=== PATIENT | male | born 2000 | race Caucasian/White ===

== ENCOUNTER 2020-12-08 10:09 | Emergency (ER) | payer OTHER, SELFPAY ==
--- NOTE | ~2020-12-08 | XR_ITS ---
EXAMINATION: XR chest 2V DATE: 12/08/2020 12:56 INDICATION: Syncope. Vomiting. TECHNIQUE: Frontal and lateral views of the chest were obtained. COMPARISON: Chest 2 views 03/05/2011 FINDINGS: There is no pneumonia, pleural effusion, or pneumothorax. The heart size is normal. IMPRESSION: 1. No acute cardiopulmonary disease. Reviewed, dictated and finalized at location B.
--- NOTE | ~2020-12-08 | CT_ITS ---
EXAMINATION: CT brain wo con INDICATION: Head injury COMPARISON: None TECHNIQUE: Standard unenhanced head CT. The dose-length product (DLP) was 605.33 mGy-cm. The mA was a djusted according to patient size. Iterative reconstruction technique was employed. FINDINGS: There is no intracranial hemorrhage, acute infarction, or abnormal mass lesion. The ventric les are normal. There is no abnormal mass effect or midline shift. The gold-white matter differentiat ion is normal. The basal cisterns are patent. The orbits are normal. There is mild mucosal thickening of the paranasal sinuses. IMPRESSION: 1. No acute intracranial abnormality. Reviewed, dictated and finalized at location A.
[2020-12-08 10:27] VITALS: BP 119/81; PULSE 82; RESP 18; TEMP 36.4; O2SAT 99
[2020-12-08 10:50] LABS: Basophils Percent Auto 0.5 % (0.2-1.2); Eosinophils Absolute Auto 0.1 K/mm3 (0-0.3); Hematocrit 45.4 % (42.0-52.0); Hemoglobin 15.5 g/dL (14.0-18.0); Immature Granulocyte Absolute 0.03 K/mm3 (0.00-0.031); Immature Granulocyte Percent A 0.5 % (0-0.5); Lymphocytes Absolute Auto 1.51 K/mm3 (0.9-3.2); Lymphocytes Percent Auto 25.1 % (18.3-44.2); Mean Corpuscular HGB Conc 34.1 g/dl (32-36); Mean Corpuscular Hemoglobin 31.1 pg (26-34); Mean Corpuscular Volume 91.2 fl (80-100); Monocytes Absolute Auto 0.4 K/mm3 (0.1-0.6); Monocytes Percent Auto 6.7 % (2.6-8.5); Neutrophils Absolute Auto 3.9 K/mm3 (1.3-6.7); Neutrophils Percent Auto 65.2 % (45.5-73.1); Platelet Count Result 179 k/mm3 (150-375); Red Blood Count 4.98 M/mm3 (4.6-6.20); Red Cell Distribution Width 12.1 % (11.5-14.5)
[2020-12-08 11:16] LABS: Alanine Aminotransferase 11 U/L (4-50); Albumin Level 4.7 g/dL (3.5-5.1); Alkaline Phosphatase 48 U/L (38-126); Anion Gap 10 mmol/L (8-16); Aspartate Amino Transferase 18 U/L (17-59); Bilirubin,Total 1.3 mg/dL (0.2-1.3); Blood Urea Nitrogen 9 mg/dL (9-20); Calcium 9.7 mg/dL (8.4-10.2); Carbon Dioxide 26 mmol/L (22-30); Chloride 107 mmol/L (98-107); Estimated CRCL calculation 117 ml/min; Estimated Glomerular Filt Rate > 60; Glucose 96 mg/dL (75-110); Lipase 27 U/L (23-300); Potassium 4.3 mmol/L (3.4-5.0); Sodium 143 mmol/L (137-145)
--- NOTE | 2020-12-08 11:28 | ED.NAVMDI ---
HPI - Nausea/Vomiting/Diarrhea General Chief complaint: Nausea/Vomiting/Diarrhea Stated complaint: n/v Source: patient Mode of arrival: ambulatory Limitations: no limitations History of Present Illness HPI Narrative: Patient is a 20-year-old male who presents for evaluation of a syncopal event as well as intractable vomiting. Patient states that on Sunday he was riding a lawnmower at work when he passed out. Patient fell off the mower, does not remember hitting his head. He denies any current headache, but reports he has had intractable nausea and vomiting since Sunday. Patient denies any current vision changes, neck pain, numbness or weakness. No chest pain or shortness of breath. Patient states he recently had a car trip to [place] over the weekend, where he had a few alcoholic beverages on Sunday but otherwise felt well on Sunday. Patient denies any current abdominal pain, diarrhea. No fever or chills. No leg swelling or calf pain. Related Data Allergies Allergy/AdvReac Type Severity Reaction Status Date / Time No Known Allergies Allergy Unverified 12/08/20 10:32 Review of Systems Review of Systems: Narrative: CONSTITUTIONAL: Denies fever, chills, or sweats. EYES: Denies visual changes, redness, or discharge. ENT: Denies rhinorrhea, congestion, sore throat, or otalgia. CARDIOVASCULAR: Denies chest pain, palpitations, or edema. RESPIRATORY: Denies cough or dyspnea. GASTROINTESTINAL: Denies abdominal pain, reports nausea and vomiting GENITOURINARY: Denies dysuria or hematuria. SKIN: Denies rash or itching. MUSCULOSKELETAL: Denies back pain, joint pain, or myalgia. NEUROLOGIC: Denies headache, numbness, or weakness. 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 EYES: PERRLA and EOMI. ENT: Nares clear, no rhinorrhea or epistaxis. Mucous membranes moist. NECK: Supple. CHEST: No respiratory distress, breathing even and non labored HEART: Regular rate, sinus rhythm ABDOMEN:Non distended, non tender EXTREMITIES: Normal range of motion. No edema. SKIN: Warm, dry, no rash. NEURO:No focal deficits. Alert and oriented x3. Finger to nose intact bilaterally. EOMs intact without nystagmus. No facial droop/asymmetry noted bilaterally. Grimace intact. Intact sensation in face. Hearing intact bilaterally. Shoulder shrug intact. Strength 5/5 bilateral upper extremities. Strength 5/5 bilateral lower extremities. Reflexes 2+ patellar. Heel to paris intact bilaterally. Ambulatory exam deferred. Course Vital Signs Vital signs: Vital Signs Temperature 36.4 C 12/08/20 10:27 Pulse Rate 82 12/08/20 10:27 Respiratory Rate 18 12/08/20 10:27 Blood Pressure 119/81 12/08/20 10:27 Pulse Oximetry 99 12/08/20 10:27 Temperature 36.4 C 12/08/20 10:27 Pulse Rate 82 12/08/20 10:27 Respiratory Rate 18 12/08/20 10:27 Blood Pressure 119/81 12/08/20 10:27 Pulse Oximetry 99 12/08/20 10:27 MDM - Nausea/Vomiting/Diarrhea MDM Narrative Medical decision making narrative: The patient was evaluated in the emergency department for syncopal event as well as nausea and vomiting that has persisted over 48 hours. The patient's episode of syncope i
[2020-12-08] MEDS: SODIUM CHLORIDE 0.9% IV 1,000 ML 999 ML IV CONT (11:34)
[2020-12-08] MEDS: ONDANSETRON INJ 4 MG/2 ML VIAL IV PUSH (11:34)
[2020-12-08 12:47] LABS: D Dimer 0.27 ug/mL (<0.48)
--- NOTE | 2020-12-08 13:04 | ECG_ITS ---
Measurements Intervals [place] Rate: 65 P: 23 OR: 95 QRS: 71 QRSD: 87 T: 22 QT: 375 QTc: 390 Interpretive Statements SINUS RHYTHM WITH SINUS ARRHYTHMIA WITH SHORT OR INTERVAL INCOMPLETE RIGHT BUNDLE BRANCH BLOCK BORDERLINE ECG Electronically Signed On 12-08-2020 13:58:58 CDT by Clinton Hoffman D.O.
[2020-12-08 13:17] LABS: Troponin I < 0.012 ng/mL (0.000-0.034)
--- NOTE | 2020-12-08 13:31 | PC.NURSE ---
Original EKG done incorrectly at 150 Hz at 1225. 2nd EKG done correctly at 40 Hz at 1304. Danisha in cardiology notified. New EKG shown to Dr. Louis
[2020-12-08 13:45] LABS: Add Urine Microscopic? NO; Appearance Urine Clear (Clear); Bilirubin Urine Negative (Negative); Blood Urine Negative (Negative); Color Urine Straw (Yellow); Glucose Urine UA Negative (Negative); Ketones Urine Negative (Negative); Leukocyte Esterase Ur Negative LEU/UL (Negative); Nitrate Urine Negative (Negative); Protein Urine Negative (Negative); Specific Grav Ur 1.009 (1.001-1.035); Urobilinogen Urine Negative mg/dL (<2.0)
[2020-12-08 13:48] VITALS: BP 124/78; PULSE 81; RESP 18; O2SAT 100
== END 2020-12-08 13:49 | disposition home or self-care (01) ==
PROVIDERS: Emergency Provider Emergency Medicine; PCP Family Medicine
DX: R11.2 Nausea with vomiting, unspecified (principal)
CPT/HCPCS: 36415; 70450; 71046; 80053; 81003; 83690; 84484; 85025; 85380; 93005; 96361; 96374; 99284; J2405; J7030

== ENCOUNTER 2021-08-29 14:29 | Outpatient (CLI) | payer OTHER, SELFPAY ==
--- NOTE | ~2021-08-29 | XR_ITS ---
EXAMINATION: XR abdomen/kub 1V DATE: 08/29/2021 14:53 INDICATION: Constipation. Left lower pelvic pain. Back pain. TECHNIQUE: A supine view of the abdomen on 2 radiographs was obtained. COMPARISON: None. FINDINGS: There are no dilated loops of bowel. There is a moderate volume of stool in the colon. IMPRESSION: 1. Nonobstructive bowel gas pattern. Reviewed, dictated and finalized at location A. 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
== END 2021-08-29 14:30 | disposition home or self-care (01) ==
LOC: ANHIMG 14:39
PROVIDERS: PCP Family Medicine; Visit Provider Physician Assistant
DX: M54.50 Low back pain, unspecified (principal); R11.0 Nausea; K59.00 Constipation, unspecified; R10.2 Pelvic and perineal pain
CPT/HCPCS: 74018

== ENCOUNTER 2021-09-03 19:46 | Emergency (ER) | payer OTHER, SELFPAY ==
--- NOTE | ~2021-09-03 | XR_ITS ---
XR abdomen/kub 1V 09/03/2021 20:39 INDICATION: Abdomen pain TECHNIQUE: KUB COMPARISON: 08/29/2021 FINDINGS: Bowel gas pattern is normal. Moderate colonic fecal loading. There is no evidence of free a ir, mass, organomegaly, ascites or obstruction. No abnormal calculi are seen. The bones appear inta ct. IMPRESSION: 1: No acute abdominal abnormality identified. Reviewed, dictated and finalized at location A. SYSTEMS MAINTAINER
[2021-09-03 19:51] VITALS: BP 121/85; PULSE 84; RESP 16; TEMP 36.1; O2SAT 99
--- NOTE | 2021-09-03 20:18 | ED.ABDPAIN ---
HPI - Abdominal Pain General Chief Complaint: Abdominal Pain Stated Complaint: Lower abd pain Time Seen by Provider: 09/03/21 19:58 History of Present Illness HPI narrative: 21-year-old male patient presents to the emergency room with complaints of upper abdominal pain for 7 days. Patient states 7 days ago he was evaluated in an urgent care. He was told he had blood in his urine and suspected kidney stone patient was sent home with Zofran for his nausea. States the following day he went to the emergency room for continuing abdominal pain nausea. ER performed a abdominal CT scan lab work. CT scan demonstrated that he had colitis and moderate amount of stool retention. ER send patient home with Zofran Pepcid dicyclomine and MiraLAX. Patient states he has had multiple loose stools since taking the MiraLAX. patient states he discontinued the MiraLAX and continued on with Ex-Lax. Patient also reports diet of high fat and fried foods. Related Data Home Medications Medication Instructions Recorded Confirmed docusate sodium 100 mg PO DAILY 09/03/21 famotidine 20 mg PO DAILY 09/03/21 ondansetron HCl 4 mg PO TID PRN 09/03/21 Allergies Allergy/AdvReac Type Severity Reaction Status Date / Time No Known Allergies Allergy Verified 09/03/21 19:57 Review of Systems Review of Systems: CONSTITUTIONAL: Denies fever, chills, or sweats. EYES: Denies visual changes, redness, or discharge. ENT: Denies rhinorrhea, congestion, sore throat, or otalgia. CARDIOVASCULAR: Denies chest pain, palpitations, or edema. RESPIRATORY: Denies cough or dyspnea. GASTROINTESTINAL: Per HPI, reports abdominal pain and alternating episodes of diarrhea and constipation. GENITOURINARY: Denies dysuria or hematuria. SKIN: Denies rash or itching. MUSCULOSKELETAL: Denies back pain, joint pain, or myalgia. NEUROLOGIC: Denies headache, numbness, dizziness, or weakness. PSYCHIATRIC: Denies anxiety or depression. 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 HEAD: Normocephalic, atraumatic. EYES: PERRLA and EOMI. ENT: Nares clear, no rhinorrhea or epistaxis. Mucous membranes moist. Oropharynx without tonsillar hypertrophy exudate or other lesions. Bilateral TMs pearly gold nonbulging NECK: Supple. No adenopathy or masses. No carotid bruits or JVD CHEST: Clear to auscultation. No respiratory distress. No wheezes rales or rhonchi HEART: Regular rate and rhythm. No murmur heard. Normal peripheral pulses. ABDOMEN: Soft, RUQ/LUQ tenderness, nondistended, normal active bowel sounds. EXTREMITIES: Normal range of motion. No edema. SKIN: Warm, dry, no rash. NEURO: No focal deficits. Alert and oriented x3. PSYCH: Normal mood and affect. Course Vital Signs Vital signs: Vital Signs Temperature 36.1 C L 09/03/21 19:51 Pulse Rate 84 09/03/21 19:51 Respiratory Rate 16 09/03/21 19:51 Blood Pressure 121/85 09/03/21 19:51 Pulse Oximetry 99 09/03/21 19:51 Temperature 36.1 C L 09/03/21 19:51 Pulse Rate 77 09/03/21 20:33 Respiratory Rate 16 09/03/21 20:33 Blood Pressure 99/63 L 09/03/21 20:33 Pulse Oximetry 99 09/03/21 20:33 MDM - Abdominal Pain MDM Narrative
[2021-09-03 20:33] VITALS: BP 99/63; PULSE 77; RESP 16; O2SAT 99
[2021-09-03 20:33] LABS: Basophils Absolute Auto 0.1 K/mm3 (0.0-0.1); Basophils Percent Auto 0.6 % (0.2-1.2); Eosinophils Absolute Auto 0.2 K/mm3 (0-0.3); Eosinophils Percent Auto 2.8 % (0-4.4); Hematocrit 43.5 % (42.0-52.0); Hemoglobin 15.5 g/dL (14.0-18.0); Immature Granulocyte Absolute 0.03 K/mm3 (0.00-0.031); Immature Granulocyte Percent A 0.4 % (0-0.5); Lymphocytes Absolute Auto 1.88 K/mm3 (0.9-3.2); Lymphocytes Percent Auto 23.9 % (18.3-44.2); Mean Corpuscular HGB Conc 35.6 g/dl (32-36); Mean Corpuscular Hemoglobin 32.4 pg (26-34); Mean Corpuscular Volume 90.8 fl (80-100); Mean Platelet Volume 10.7 fl (7.4-10.4); Monocytes Absolute Auto 0.6 K/mm3 (0.1-0.6); Monocytes Percent Auto 8.1 % (2.6-8.5); Neutrophils Percent Auto 64.2 % (45.5-73.1); Platelet Count Result 236 k/mm3 (150-375); Red Blood Count 4.79 M/mm3 (4.6-6.20); Red Cell Distribution Width 11.6 % (11.5-14.5); White Blood Count 7.9 K/mm3 (4.5-10.0)
[2021-09-03] MEDS: SODIUM CHLORIDE 0.9% IV 1,000 ML 999 ML IV CONT (20:33)
[2021-09-03 20:35] LABS: Add Urine Microscopic? NO; Appearance Urine Clear (Clear); Bilirubin Urine Negative (Negative); Blood Urine Negative (Negative); Color Urine Straw (Yellow); Glucose Urine UA Negative (Negative); Ketones Urine Negative (Negative); Leukocyte Esterase Ur Negative LEU/UL (Negative); Nitrate Urine Negative (Negative); Protein Urine Negative (Negative); Specific Grav Ur 1.009 (1.001-1.035); Urobilinogen Urine Negative mg/dL (<2.0)
[2021-09-03 20:45] LABS: Alanine Aminotransferase 13 U/L (4-50); Albumin Level 4.5 g/dL (3.5-5.1); Alkaline Phosphatase 53 U/L (38-126); Anion Gap 10 mmol/L (8-16); Aspartate Amino Transferase 23 U/L (17-59); Bilirubin,Total 0.7 mg/dL (0.2-1.3); Blood Urea Nitrogen 10 mg/dL (9-20); Calcium 9.3 mg/dL (8.4-10.2); Carbon Dioxide 25 mmol/L (22-30); Chloride 107 mmol/L (98-107); Estimated CRCL calculation 119 ml/min; Estimated Glomerular Filt Rate > 60; Glucose 95 mg/dL (65-110); Lipase 45 U/L (23-300); Potassium 3.9 mmol/L (3.4-5.0); Sodium 142 mmol/L (137-145)
[2021-09-03 21:36] VITALS: BP 111/72; PULSE 72; RESP 16; O2SAT 99
== END 2021-09-03 21:38 | disposition home or self-care (01) ==
PROVIDERS: Emergency Provider Nurse Practitioner Family; PCP Family Medicine
DX: K59.00 Constipation, unspecified (principal); J45.30 Mild persistent asthma, uncomplicated; F17.210 Nicotine dependence, cigarettes, uncomplicated
CPT/HCPCS: 36415; 74018; 80053; 81003; 83690; 85025; 96360; 99283; J7030

== ENCOUNTER 2021-09-05 21:13 | Emergency (ER) | payer OTHER, SELFPAY ==
--- NOTE | 2021-09-05 21:24 | PC.NURSE ---
Pt aox3 checked and no longer wants to be seen.
== END 2021-09-05 21:50 | disposition left against medical advice (07) ==
PROVIDERS: PCP Family Medicine
DX: Z53.21 Procedure and treatment not carried out due to patient leaving prior to being seen by health care provider (principal)
CPT/HCPCS: 99199

== ENCOUNTER 2021-11-09 13:49 | Emergency (ER) | payer OTHER, SELFPAY ==
--- NOTE | ~2021-11-09 | XR_ITS ---
EXAMINATION: XR chest 2V DATE: 11/09/2021 14:24 INDICATION: Chest tightness. Shortness of breath. TECHNIQUE: Frontal and lateral views of the chest were obtained. COMPARISON: Chest 2 views 12/08/2020 FINDINGS: The chest demonstrates clear lungs without pneumonia, pleural effusion, or pneumothorax. Th e heart size is normal. IMPRESSION: 1. No acute cardiopulmonary disease. Reviewed, dictated and finalized at location A.
--- NOTE | 2021-11-09 13:51 | ECG_ITS ---
Measurements Intervals [place] Rate: 72 P: 60 MN: 113 QRS: 84 QRSD: 89 T: 43 QT: 370 QTc: 406 Interpretive Statements SINUS RHYTHM WITH SINUS ARRHYTHMIA WITH SHORT MN INTERVAL COMPARED TO ECG 12/08/2020 13:04:11 NO SIGNIFICANT CHANGES Electronically Signed On 11-09-2021 20:10:50 CDT by Albina Grider M.D.
[2021-11-09 14:08] VITALS: BP 111/68; PULSE 75; RESP 16; TEMP 36.9; O2SAT 100
[2021-11-09 14:17] LABS: Basophils Percent Auto 0.3 % (0.2-1.2); Eosinophils Absolute Auto 0.1 K/mm3 (0-0.3); Eosinophils Percent Auto 1.6 % (0-4.4); Hematocrit 44.7 % (42.0-52.0); Hemoglobin 15.4 g/dL (14.0-18.0); Immature Granulocyte Absolute 0.02 K/mm3 (0.00-0.031); Immature Granulocyte Percent A 0.3 % (0-0.5); Lymphocytes Absolute Auto 1.51 K/mm3 (0.9-3.2); Lymphocytes Percent Auto 21.5 % (18.3-44.2); Mean Corpuscular HGB Conc 34.5 g/dl (32-36); Mean Corpuscular Hemoglobin 31.6 pg (26-34); Mean Corpuscular Volume 91.6 fl (80-100); Mean Platelet Volume 10.6 fl (7.4-10.4); Monocytes Absolute Auto 0.4 K/mm3 (0.1-0.6); Monocytes Percent Auto 6.1 % (2.6-8.5); Neutrophils Absolute Auto 4.9 K/mm3 (1.3-6.7); Neutrophils Percent Auto 70.2 % (45.5-73.1); Platelet Count Result 207 k/mm3 (150-375); Red Blood Count 4.88 M/mm3 (4.6-6.20); Red Cell Distribution Width 12.1 % (11.5-14.5)
[2021-11-09 14:28] LABS: Alanine Aminotransferase 17 U/L (4-50); Albumin Level 4.9 g/dL (3.5-5.1); Alkaline Phosphatase 57 U/L (38-126); Anion Gap 9 mmol/L (8-16); Aspartate Amino Transferase 21 U/L (17-59); Bilirubin,Total 1.1 mg/dL (0.2-1.3); Blood Urea Nitrogen 9 mg/dL (9-20); Calcium 9.6 mg/dL (8.4-10.2); Carbon Dioxide 26 mmol/L (22-30); Chloride 107 mmol/L (98-107); Estimated CRCL calculation 117 ml/min; Estimated Glomerular Filt Rate > 60; Glucose 106 mg/dL (65-110); INR 1.1; Lipase 26 U/L (23-300); Partial Thromboplastin Time 26.9 SECONDS (22.3-36.8); Potassium 3.7 mmol/L (3.4-5.0); Sodium 142 mmol/L (137-145)
--- NOTE | 2021-11-09 14:36 | PC.NURSE ---
pt ambulatory to intake desk and states he does not have chest pain anymore and states he will just follow up w/ his primary. pt told if he changes his mind he is always welcomed back.
[2021-11-09 14:40] LABS: Troponin I < 0.012 ng/mL (0.000-0.034)
== END 2021-11-09 14:57 | disposition left against medical advice (07) ==
LOC: ANHED 14:55
PROVIDERS: Emergency Provider Emergency Medicine; PCP Family Medicine
DX: R07.89 Other chest pain (principal)
CPT/HCPCS: 36415; 71046; 80053; 83690; 84484; 85025; 85610; 85730; 93005; 99199

== ENCOUNTER 2021-12-12 19:47 | Emergency (ER) | payer OTHER, SELFPAY ==
[2021-12-12 20:03] VITALS: BP 127/96; PULSE 87; RESP 16; TEMP 36.5; O2SAT 97
--- NOTE | 2021-12-12 20:41 | ED.GENADULT ---
HPI - General Adult General Chief complaint: Abdominal Pain Stated complaint: groin pain Time Seen by Provider: 12/12/21 20:23 History of Present Illness HPI narrative: 19-year-old male presents the emergency room complaints of a right inguinal tenderness and mild right testicular tenderness. Patient states 2 weeks ago his significant other was diagnosed with chlamydia and was treated with Rocephin and doxycycline at that time. Patient states he called his primary care physician today and was given 1 g of azithromycin. Patient states a couple days ago he began to develop lower abdominal pain that radiated into his right inguinal tenderness, and tenderness to the posterior side of his right testicle. Patient denies any dysuria or purulent penile drainage. Patient denies a fever Related Data Home Medications Medication Instructions Recorded Confirmed famotidine 20 mg tablet 20 mg PO DAILY 09/03/21 ondansetron HCl 4 mg tablet 4 mg PO TID PRN Nausea 09/03/21 Allergies Allergy/AdvReac Type Severity Reaction Status Date / Time No Known Allergies Allergy Verified 12/12/21 20:36 Review of Systems Review of Systems: CONSTITUTIONAL: Denies fever, chills, or sweats. EYES: Denies visual changes, redness, or discharge. ENT: Denies rhinorrhea, congestion, sore throat, or otalgia. CARDIOVASCULAR: Denies chest pain, palpitations, or edema. RESPIRATORY: Denies cough or dyspnea. GASTROINTESTINAL: Denies abdominal pain, nausea, vomiting, or diarrhea. GENITOURINARY: Reports right inguinal tenderness, right testicular tenderness SKIN: Denies rash or itching. MUSCULOSKELETAL: Denies back pain, joint pain, or myalgia. NEUROLOGIC: Denies headache, numbness, dizziness, or weakness. PSYCHIATRIC: Denies anxiety or depression. 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 HEAD: Normocephalic, atraumatic. EYES: PERRLA and EOMI. CHEST: Clear to auscultation. No respiratory distress. No wheezes rales or rhonchi HEART: Regular rate and rhythm. No murmur heard. Normal peripheral pulses. ABDOMEN: Soft, nontender, nondistended, normal active bowel sounds. Right inguinal tenderness : Right posterior testicle tenderness, bilateral cremasteric reflexes present, positive Prehn sign EXTREMITIES: Normal range of motion. No edema. SKIN: Warm, dry, no rash. NEURO: No focal deficits. Alert and oriented x3. PSYCH: Normal mood and affect. Course Vital Signs Vital signs: Vital Signs Temperature 36.5 C 12/12/21 20:03 Pulse Rate 87 12/12/21 20:03 Respiratory Rate 16 12/12/21 20:03 Blood Pressure 127/96 H 12/12/21 20:03 Pulse Oximetry 97 12/12/21 20:03 Oxygen Delivery Room Air 12/12/21 20:03 Temperature 36.5 C 12/12/21 20:03 Pulse Rate 87 12/12/21 20:03 Respiratory Rate 16 12/12/21 20:03 Blood Pressure 127/96 H 12/12/21 20:03 Pulse Oximetry 97 12/12/21 20:03 Oxygen Delivery Room Air 12/12/21 20:03 Medical Decision Making Vital Signs Vital Signs: Vital Signs Temperature 36.5 C 12/12/21 20:03 Pulse Rate 87 12/12/21 20:03 Respiratory Rate 16 12/12/21 20:03 Blood Pressure 127/96 H 12/12/21 20:03 Pulse Oximetry 97 12/12/21
[2021-12-12 20:58] LABS: Appearance Urine Clear (Clear); Bilirubin Urine Negative (Negative); Blood Urine Negative (Negative); Color Urine Yellow (Yellow); Glucose Urine UA Negative (Negative); Ketones Urine 1+ mg/dL (Negative); Leukocyte Esterase Ur Negative LEU/UL (Negative); Nitrate Urine Negative (Negative); Protein Urine Negative (Negative); Specific Grav Ur 1.015 (1.001-1.035); pH Urine 6.5 (5.0-9.0)
[2021-12-12] MEDS: DOXYCYCLINE HYCLATE 100 MG TABLET PO (21:02)
[2021-12-12] MEDS: LIDOCAINE HCL 1% PF 30 ML VIAL (21:02)
[2021-12-12] MEDS: cefTRIAXone 1 GM VIAL 0.5 GM IM (21:03)
[2021-12-12 21:04] LABS: Add Urine Microscopic? YES
== END 2021-12-12 21:15 | disposition home or self-care (01) ==
PROVIDERS: Emergency Provider Nurse Practitioner Family; PCP Family Medicine
DX: Z20.2 Contact with and (suspected) exposure to infections with a predominantly sexual mode of transmission (principal); J45.30 Mild persistent asthma, uncomplicated; G62.9 Polyneuropathy, unspecified; Z87.891 Personal history of nicotine dependence
CPT/HCPCS: 81001; 96372; 99283; A9270; J0696

== ENCOUNTER 2022-10-30 08:50 | Emergency (ER) | payer OTHER, SELFPAY ==
[2022-10-30] VITALS (14 sets, daily range): BP systolic 110–118; BP diastolic 69–81; PULSE 66–71; RESP 13–16; TEMP 36.4; O2SAT 97–100
--- NOTE | ~2022-10-30 | US_ITS ---
Limited Abdominal Sonogram: Real-time sonographic imaging of the right upper quadrant was performed. Clinical History: Abdominal pain Findings: The liver appears normal with no evidence of mass lesion or bile duct dilatation. Main por roberto carlos vein demonstrates normal direction of flow. The gallbladder is well distended, and appears normal with no evidence of gallstone or wall thickening. The common bile duct measures 6 mm. The visualize d pancreas, aorta, and IVC are unremarkable. Impression: No significant abnormality seen. Reviewed, dictated and finalized at location . Impression: No significant abnormality seen.
--- NOTE | 2022-10-30 09:07 | ED.ABDPAIN ---
HPI - Abdominal Pain General Chief Complaint: Abdominal Pain Stated Complaint: abd pain Time Seen by Provider: 10/30/22 08:52 History of Present Illness HPI narrative: Patient is a 22-year-old male who presents ER with right-sided abdominal pain. Upper abdomen and radiates to the back. Intermittent over the the weekend. No fevers or chills or sweats. Has had recurrent vomiting. No diarrhea. Denies aggravation by eating or drinking. No known sick contacts. Related Data Home Medications Medication Instructions Recorded Confirmed famotidine 20 mg tablet 20 mg PO DAILY 09/03/21 01/03/22 ondansetron HCl 4 mg tablet 4 mg PO TID PRN Nausea 09/03/21 01/03/22 Allergies Allergy/AdvReac Type Severity Reaction Status Date / Time No Known Allergies Allergy Verified 10/30/22 09:25 Review of Systems Review of Systems: All systems reviewed & are unremarkable except as noted in HPI and below Constitutional: Constitutional: Denies chills, Denies fatigue and Denies fever(s) ENT: Denies nasal congestion and Denies sore throat Cardiovascular: Cardiovascular: Denies chest pain, Denies rapid heart rate and Denies radiating jaw, neck or arm pain Respiratory: Respiratory: Denies cough and Denies dyspnea Gastrointestinal: Gastrointestinal: Reports abdominal pain, Denies heartburn, Denies diarrhea, Reports nausea and Reports vomiting Genitourinary: Genitourinary: Denies dysuria and Denies testicular pain PMF Past Medical History Medical History Contusion, chest wall Cryptorchidism, unilateral right Laceration of right forearm Mild persistent asthma without complication 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 Right arm cellulitis Surgical History Surgical History S/P orchiopexy right; aged 3 months Social History Social History Smoking packs per day: 2 Smoking cigarettes per day: 40.0 Years smoked: 3 Smoking pack-years: 6.00 Smoking status: Former smoker Tobacco type: cigarettes Second hand tobacco smoke exposure: No Alcohol intake: current Drinks per week: 12 Substance use: never Substance use type: does not use Living arrangements: alone Occupation/Education: occupation Gender identity (if verbalized by the patient): Male Exam Narrative: GENERAL: Well-appearing, well-nourished, and in no acute distress. HEAD: Normocephalic, atraumatic. ENT: Mucous membranes moist. CHEST: Clear to auscultation. No respiratory distress. HEART: Regular rate and rhythm. Normal peripheral pulses. ABDOMEN: Soft, mild tenderness right upper quadrant with mild guarding, nondistended, normal active bowel sounds. EXTREMITIES: Normal range of motion. No edema. SKIN: Warm, dry, no rash. NEURO: Alert and oriented x3. PSYCH: Normal mood and affect Course Vital Signs Vital signs: Vital Signs Temperature 97.5 F L 10/30/22 08:54 Pulse Rate 69 10/30/22 08:54 Respiratory Rate 13 10/30/22 08:54 Blood Pressure 113/77 10/30/22 08:54 Pulse Oximetry 100 10/30/22 08:54 Oxygen Delivery Room Air 10/30/22 08:54 Temperature 97.5 F L 10/30/22 08:54 Pulse Rate 71 10/30/22 11:10 Respiratory Rate 15 10/30/22 11:10 Blood Pressure 114/76 10/30/22 11:11 Pulse Oximetry 99 10/30/22 11:16 Oxygen Delivery Room Air 10/30/22 08:54 MDM - Abdominal Pain Lab Data 10/30/22 09:01 10/30/22 09:01 Labs: Lab Results 10/30/22 10/30/22 10/30/22 Range/Units 09:01 09:01 09:49 WBC 5.8 (4.5-10.0) K/mm3 RBC 5.25 (4.6-6.20) M/mm3 Hgb 16.7 (14.0-18.0) g/dL Hct 48.4 (42.0-52.0) % MCV 92.2 (80-100) fl MCH 31.8 (26-34) pg MCHC 34.5 (32-36) g/dl RDW 12.3 (11.5-14.5) % Plt Count 208 (150-375) k/mm3 MPV 10.9 H (7.4-
[2022-10-30] MEDS: SODIUM CHLORIDE 0.9% IV 1,000 ML 999 ML IV CONT (09:10)
[2022-10-30] MEDS: MORPHINE SULFATE (*CRX) 4 MG/ML INJ IV PUSH (09:13)
[2022-10-30] MEDS: ONDANSETRON INJ 4 MG/2 ML VIAL IV PUSH (09:13)
[2022-10-30 09:21] LABS: Basophils Percent Auto 0.5 % (0.2-1.2); Eosinophils Absolute Auto 0.2 K/mm3 (0-0.3); Eosinophils Percent Auto 3.1 % (0-4.4); Hematocrit 48.4 % (42.0-52.0); Hemoglobin 16.7 g/dL (14.0-18.0); Immature Granulocyte Absolute 0.03 K/mm3 (0.00-0.031); Immature Granulocyte Percent A 0.5 % (0-0.5); Lymphocytes Absolute Auto 1.69 K/mm3 (0.9-3.2); Lymphocytes Percent Auto 29.2 % (18.3-44.2); Mean Corpuscular HGB Conc 34.5 g/dl (32-36); Mean Corpuscular Hemoglobin 31.8 pg (26-34); Mean Corpuscular Volume 92.2 fl (80-100); Mean Platelet Volume 10.9 fl (7.4-10.4); Monocytes Absolute Auto 0.5 K/mm3 (0.1-0.6); Monocytes Percent Auto 8.1 % (2.6-8.5); Neutrophils Absolute Auto 3.4 K/mm3 (1.3-6.7); Neutrophils Percent Auto 58.6 % (45.5-73.1); Platelet Count Result 208 k/mm3 (150-375); Red Blood Count 5.25 M/mm3 (4.6-6.20); Red Cell Distribution Width 12.3 % (11.5-14.5); White Blood Count 5.8 K/mm3 (4.5-10.0)
[2022-10-30 09:33] LABS: Alanine Aminotransferase 49 U/L (6-50); Alkaline Phosphatase 53 U/L (38-126); Anion Gap 7 mmol/L (8-16); Aspartate Amino Transferase 31 U/L (17-59); Bilirubin,Total 1.6 mg/dL (0.2-1.3); Blood Urea Nitrogen 10 mg/dL (9-20); Calcium 9.3 mg/dL (8.4-10.2); Carbon Dioxide 29 mmol/L (22-30); Chloride 103 mmol/L (98-107); Estimated CRCL calculation 115 ml/min; Estimated Glomerular Filt Rate > 60; Glucose 100 mg/dL (65-110); Lipase 38 U/L (23-300); Potassium 4.1 mmol/L (3.4-5.0); Sodium 139 mmol/L (137-145)
[2022-10-30 10:01] LABS: Appearance Urine Clear (Clear); Bilirubin Urine Negative (Negative); Blood Urine Negative (Negative); Color Urine Yellow (Yellow); Glucose Urine UA Negative (Negative); Ketones Urine Negative (Negative); Leukocyte Esterase Ur Negative LEU/UL (Negative); Nitrate Urine Negative (Negative); Protein Urine Negative (Negative); Specific Grav Ur 1.018 (1.001-1.035); pH Urine 7.5 (5.0-9.0)
[2022-10-30 10:25] LABS: Add Urine Microscopic? NO
== END 2022-10-30 12:10 | disposition home or self-care (01) ==
PROVIDERS: Emergency Provider Emergency Medicine; PCP Family Medicine
DX: R10.13 Epigastric pain (principal); J45.30 Mild persistent asthma, uncomplicated; G62.9 Polyneuropathy, unspecified; Z87.891 Personal history of nicotine dependence
CPT/HCPCS: 36415; 76705; 80053; 81003; 83690; 85025; 96361; 96374; 96375; 99284; J2270; J2405; J7030

== ENCOUNTER 2022-10-31 11:41 | Outpatient (CLI) | payer OTHER, SELFPAY ==
--- NOTE | ~2022-10-31 | CT_ITS ---
Non-contrast CT scan of the Abdomen and Pelvis Clinical indication: Right lower quadrant pain Technique: 2.5 mm axial scans were obtained through the abdomen and pelvis without intravenous or or al contrast. Dose reduction technique was used on this scan by utilizing automated exposure control a nd iterative reconstruction technique. The dose-length product (DLP) was 224.01 mGy-cm. Findings: Images through the lung bases reveal no abnormalities. There is no evidence of renal or ureteral calculi. The kidneys and the ureters are nondilated. The liver, spleen, pancreas, gallbladder, and adrenals appear normal. There is no aortic aneurysm. There is no evidence of bowel obstruction. No evidence for appendicitis. Images through the pelvis were performed. There is no evidence of ascites or lymphadenopathy. Urinary bladder unremarkable. Prostate gland and seminal vesicles are unremarkable. Impression: No significant abnormality seen. Reviewed, dictated and finalized at [facility]. Impression: No significant abnormality seen.
== END 2022-10-31 11:42 | disposition home or self-care (01) ==
LOC: ANHIMG 11:43
PROVIDERS: PCP Family Medicine; Visit Provider Physician Assistant
DX: R11.2 Nausea with vomiting, unspecified (principal); R10.31 Right lower quadrant pain
CPT/HCPCS: 74176

== ENCOUNTER 2023-02-20 06:06 | Emergency (ER) | payer OTHER, SELFPAY ==
[2023-02-20] VITALS (28 sets, daily range): BP systolic 107–130; BP diastolic 68–101; PULSE 67–104; RESP 11–23; TEMP 36.3; O2SAT 97–100
--- NOTE | ~2023-02-20 | CT_ITS ---
CT of the Abdomen and Pelvis: Indication: Abdominal pain Technique: 2.5 mm axial scans were obtained through the abdomen and pelvis following intravenous adm inistration of 100 cc of Omnipaque 350. Dose reduction technique was used on this scan by utilizing a utomated exposure control and iterative reconstruction technique. The dose-length product (DLP) was 2 23.55 mGy-cm. COMPARISON: 10/31/2022 Findings: Scans through the lung bases are unremarkable. The liver, spleen, pancreas, gallbladder, adrenals and kidneys are within normal limits. No evidence of aortic aneurysm. No lymphadenopathy. No bowel obstruction or bowel wall thickening. There is no evidence to suggest acute appendicitis. Images through the pelvis were performed. Urinary bladder unremarkable. No pelvic mass seen. No ascit es. Impression: No significant abnormalities seen. Reviewed, dictated and finalized at [facility]. Impression: No significant abnormalities seen.
[2023-02-20] MEDS: ONDANSETRON INJ 4 MG/2 ML VIAL IV PUSH ×2 (06:48→09:18)
[2023-02-20] MEDS: SODIUM CHLORIDE 0.9% IV 1,000 ML 999 ML IV CONT (06:49)
[2023-02-20 06:51] LABS: Basophils Percent Auto 0.8 % (0.2-1.2); Eosinophils Absolute Auto 0.2 K/mm3 (0-0.3); Eosinophils Percent Auto 3.4 % (0-4.4); Hematocrit 45.1 % (42.0-52.0); Hemoglobin 15.6 g/dL (14.0-18.0); Immature Granulocyte Absolute 0.03 K/mm3 (0.00-0.031); Immature Granulocyte Percent A 0.6 % (0-0.5); Lymphocytes Absolute Auto 1.63 K/mm3 (0.9-3.2); Lymphocytes Percent Auto 32.3 % (18.3-44.2); Mean Corpuscular HGB Conc 34.6 g/dl (32-36); Mean Corpuscular Hemoglobin 31.8 pg (26-34); Monocytes Absolute Auto 0.4 K/mm3 (0.1-0.6); Monocytes Percent Auto 8.1 % (2.6-8.5); Neutrophils Absolute Auto 2.8 K/mm3 (1.3-6.7); Neutrophils Percent Auto 54.8 % (45.5-73.1); Platelet Count Result 191 k/mm3 (150-375); Red Cell Distribution Width 12.1 % (11.5-14.5); White Blood Count 5.1 K/mm3 (4.5-10.0)
[2023-02-20 07:01] LABS: Alanine Aminotransferase 22 U/L (6-50); Albumin Level 4.5 g/dL (3.5-5.1); Alkaline Phosphatase 45 U/L (38-126); Anion Gap 7 mmol/L (8-16); Aspartate Amino Transferase 20 U/L (17-59); Bilirubin,Total 1.2 mg/dL (0.2-1.3); Blood Urea Nitrogen 12 mg/dL (9-20); Calcium 9.2 mg/dL (8.4-10.2); Carbon Dioxide 26 mmol/L (22-30); Chloride 104 mmol/L (98-107); Estimated CRCL calculation 93 ml/min; Estimated Glomerular Filt Rate > 60; Glucose 101 mg/dL (65-110); Lipase 55 U/L (23-300); Potassium 3.4 mmol/L (3.4-5.0); Sodium 137 mmol/L (137-145)
[2023-02-20 07:34] LABS: Appearance Urine Clear (Clear); Bilirubin Urine Negative (Negative); Blood Urine Negative (Negative); Color Urine Yellow (Yellow); Glucose Urine UA Negative (Negative); Ketones Urine Negative (Negative); Leukocyte Esterase Ur Negative LEU/UL (Negative); Nitrate Urine Negative (Negative); Protein Urine Negative (Negative); pH Urine 6.5 (5.0-9.0)
--- NOTE | 2023-02-20 07:37 | ED.GENADULT ---
HPI - General Adult General Chief complaint: Weakness Stated complaint: generalized weakness, nausea Time Seen by Provider: 02/20/23 07:35 Source: patient Mode of arrival: ambulatory Limitations: no limitations History of Present Illness HPI narrative: 22 years old white female complaining of lightheadedness, stuffy nose, postnasal discharge nausea, general weakness and lower back pain started 4 days ago. Intermittent, patient denies any fever, chills, vomiting, diarrhea or constipation or urinary symptoms. Currently patient main complaint is tiredness and nausea. 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 Right arm cellulitis Surgical History Surgical History S/P orchiopexy right; aged 3 months Social History Social History Smoking packs per day: 2 Smoking cigarettes per day: 40.0 Years smoked: 3 Smoking pack-years: 6.00 Smoking status: Former smoker Tobacco type: cigarettes Second hand tobacco smoke exposure: No Alcohol intake: current Drinks per week: 12 Substance use: never Substance use type: does not use Living arrangements: alone Occupation/Education: occupation Gender identity (if verbalized by the patient): Male Exam Narrative: General appearance: Well-developed, well-nourished Skin: Normal color Head: Normocephalic, nontraumatic Eyes: Clear conjunctiva ENT: Oropharynx normal, ears normal, nose normal Neck: Supple, nontender Chest and respiratory: Airway patent, no respiratory distress, no accessory muscle use Heart: Regular rate/rhythm Abdomen: Soft, nontender, no organomegaly, quiet bowel sounds Vascular: Normal peripheral pulses, normal capillary refill. 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 is normal as tested, no gross motor deficit Course Reevaluation(s) Reevaluation #1: Feeling much better after IV normal saline and Toradol Date: 02/20/23 Time: 08:15 Vital Signs Vital signs: Vital Signs Temperature 36.3 C L 02/20/23 06:11 Pulse Rate 88 02/20/23 06:11 Respiratory Rate 18 02/20/23 06:11 Blood Pressure 118/68 02/20/23 06:11 Pulse Oximetry 99 02/20/23 06:11 Oxygen Delivery Room Air 02/20/23 06:11 Temperature 36.3 C L 02/20/23 06:11 Pulse Rate 104 H 02/20/23 09:24 Respiratory Rate 11 L 02/20/23 07:45 Blood Pressure 115/94 H 02/20/23 09:24 Pulse Oximetry 99 02/20/23 07:45 Oxygen Delivery Room Air 02/20/23 06:11 Medical Decision Making MDM Narrative Medical decision making narrative: Patient presents with lightheadedness nausea and weakness for the last 4 days. Differential diagnosis as below, physical examination showed insignificant abnormality, Work-up today include CBC, CMP, urine analysis, lipase, CT abdomen pelvis with IV contrast Work-up today showed no significant abnormality. COVID test ordered. Workup today showed no acute abnormalities, viral syndrome is
[2023-02-20 07:49] LABS: Add Urine Microscopic? NO
[2023-02-20 08:58] LABS: SARS-CoV-2 RNA PCR Negative (Negative)
[2023-02-20] MEDS: KETOROLAC 30 MG/ML VIAL (*BKC) IV PUSH (09:18)
--- NOTE | 2023-03-06 14:06 | PC.NURSE ---
late entry 02/20/23 0742 ns 1000cc infused
== END 2023-02-20 09:50 | disposition home or self-care (01) ==
PROVIDERS: General Practice; Emergency Provider Emergency Medicine; PCP Family Medicine
DX: B34.9 Viral infection, unspecified (principal); Z20.822 Contact with and (suspected) exposure to COVID-19; J45.30 Mild persistent asthma, uncomplicated; Z87.891 Personal history of nicotine dependence
CPT/HCPCS: 36415; 74177; 80053; 81003; 83690; 85025; 87635; 96361; 96374; 96375; 96376; 99284; J1885; J2405; J7030; Q9967

== ENCOUNTER 2024-04-22 12:58 | Outpatient (CLI) | payer OTHER, SELFPAY ==
--- NOTE | ~2024-04-22 | US_ITS ---
US scrotum doppler INDICATION: Genital tract disorders. Palpable left breast abnormality. TECHNIQUE: Testicular sonogram utilizing grayscale and color Doppler FINDINGS: The testes are normal in size and appearance. No focal lesions are seen. The right testes measures 4.6 x 1.7 x 2.3 cm centimeters, and the left testis measures 3.9 x 2 x 2.2 cm cm. There is n ormal vascular flow to both testes. The right epididymis is normal. There is a 1 cm left epididymal cyst. There is a small left hydrocele. No evidence for varicocele. IMPRESSION: 1. Left epididymal cyst measuring 1 cm. 2: Small left hydrocele. Reviewed, dictated and finalized at location B.
== END 2024-04-22 12:59 | disposition home or self-care (01) ==
PROVIDERS: PCP Family Medicine; Visit Provider Family Medicine
DX: N43.3 Hydrocele, unspecified (principal); N50.3 Cyst of epididymis
CPT/HCPCS: 76870; 93976

== ENCOUNTER 2024-08-22 15:16 | Outpatient (CLI) | payer OTHER, SELFPAY ==
--- NOTE | ~2024-08-22 | XR_ITS ---
EXAMINATION:[id number] DATE: 08/22/2024 15:41 INDICATION: Neck pain and stiffness TECHNIQUE: AP, lateral, lateral swimmers and odontoid views of the cervical spine are provided. COMPARISON: None FINDINGS: Mild reversal of the normal lordosis in the upper cervical spine. Odontoid is intact. Normal atlantoa xial interval. Vertebral body heights are normal. Mild disc height loss at C3-C4 with small posterior endplate osteophytes contribute to mild central canal stenosis at this level. Mild uncovertebral ost eoarthritis bilaterally at C4-C5 and on the left at C3-C4 and C6-C7. Mild osteoarthritis at a few of the cervical facet joints. Visualized apices of lungs are clear. Prevertebral soft tissues are unrem arkable. IMPRESSION: 1. Mild cervical spondylosis. Reviewed, dictated and finalized at location B. OR PRODUCTION PLANNER
--- NOTE | ~2024-08-22 | XR_ITS ---
EXAMINATION: XR shoulder RT min 2V DATE: 08/22/2024 15:40 INDICATION: Right shoulder pain and stiffness TECHNIQUE: AP internally and externally rotated, AP oblique externally rotated and axillary views of the right shoulder were obtained. COMPARISON: None FINDINGS: Normal alignment. No fracture. Glenohumeral joint is normal. Acromioclavicular joint is normal. Soft tissues are unremarkable. Visualized portion of the right lung is clear. IMPRESSION: Negative right shoulder radiographs. Reviewed, dictated and finalized at location B. CAL OFFICE TECHNOLOGY INSTRUCTOR
--- OUTSIDE RECORDS SUMMARY | 2024-08-22 15:19 | XMS_ITS | Referral Summary ---
Author Organization [facility] Address [address] [place] [address] Care Team Providers Care Washer Machine Name Role Phone Garrett Foreman MD Primary Care Provider [phone] Source Comments [facility],non-owned Affiliates and Associated Physician Practices is amultiple site organization consisting of ambulatory clinics and hospital sitesin [place], [place], [place] and [place]. This disclosure is being madepursuant to the Care Everywhere program and may not contain all information available regarding this patient. Last updated 18.[facility] [employer] Allergies No known active allergies Medications * Be aware that medications may not be up to date on this document. Alwaysverify current medications with the patient. Medication Sig Dispensed Refills Start Date End Date Status albuterol HFA (VENTOLIN HFA) 8 gram inhaler Inhale 2 Puffs by mouth every 6 hours as needed. Active ADVAIR DISKUS 100-50 MCG/DOSE inhaler 1 10/17/2014 Active Active Problems No known active problems Social History Tobacco Use Types Packs/Day Years Used Date Smoking Tobacco: Never Alcohol Use Standard Drinks/Week Comments No 0 (1 standard drink = 0.6 oz pur e alcohol) Sex and Gender Information Value Date Recorded Sex Assigned at Not on file Gender Identity Not on file Sexual Orientation Not on file Last Filed Vital Signs Vital Sign Reading Time Taken Comments Blood Pressure - - Pulse - - Temperature 35.8 C (96.4 F) 11/10/2014 10:15 AM CDT Respiratory Rate - - Oxygen Saturation - - Inhaled Oxygen Concentration - - Weight 63.4 kg (139 lb 12 oz) 11/10/2014 10:15 A M CDT Height 174 cm (5' 8.5 ) 11/10/2014 10:15 AM CDT Body Mass Index 20.94 11/10/2014 10:15 AM CDT Plan of Treatment Not on file Care Teams Washer Machine Relationship Specialty Start Date End Date Garrett Foreman MD [address] [place] [address] PCP - General Family Medicine 11/02/14
--- OUTSIDE RECORDS SUMMARY | 2024-08-22 15:19 | XMS_ITS | Clinical Summary ---
Author Organization [facility] Address [address] [place] [address] Care Team Providers Care Rawhide Bone Roller Name Role Phone Garrett Foreman MD Primary Care Provider [phone] Allergies No known active allergies Social History Tobacco Use Types Packs/Day Years Used Date Smoking Tobacco: Light Smoker Cigarettes Electronic Cigarettes Passive Smoke Exposure: Current Smokeless Tobacco: Never Tobacco Cessation:Ready to Q uit: Not Asked; Counseling Given: Not Answered Comments:rarely, vape everyday Alcohol Use Standard Drinks/Week Comments Yes 0 (1 standard drink = 0.6 oz pur e alcohol) occionaly Sex and Gender Information Value Date Recorded Sex Assigned at Not on file Legal Sex Male 8:29 PM CDT Gender Identity Not on file Sexual Orientation Not on file Last Filed Vital Signs Vital Sign Reading Time Taken Comments Blood Pressure 109/85 10/30/2022 2:35 AM CDT Pulse 67 10/30/2022 2:35 AM CDT Temperature 36.6 C (97.8 F) 10/30/2022 2:35 AM CDT Respiratory Rate 18 10/30/2022 2:35 AM CDT Oxygen Saturation 100% 10/30/2022 2:35 AM CDT Inhaled Oxygen Concentration - - Weight 64.4 kg (141 lb 15.6 oz) 10/30/2022 2:35 AM CDT Height 180.3 cm (5' 11 ) 10/30/2022 2:35 AM CDT Body Mass Index 19.8 10/30/2022 2:35 AM CDT Plan of Treatment Health Maintenance Due Date Last Done Comments Annual Physical 2002 Pneumococcal Vaccine: Pediat rics (0 to 5 Years) and At-Risk Patients (6 to 64 Years) (1 of 2 - PCV) 2005 HPV Vaccines (1 - Male 3-dos e series) 2014 Hepatitis C 2017 DTaP, Tdap and Td Vaccines ( 2 - Tdap) 2018 11/22/2000 Hepatitis B Vaccines (1 of 3 - 19+ 3-dose series) 2018 COVID-19 Vaccine (1 - 2023-2 5 season) 2024 Influenza Adult (#1) 2024 Meningococcal B Vaccine Aged Out No l onger eligible based on patient's age to complete this topic Meningococcal Vaccine Aged Out No kiko tisha eligible based on patient's age to complete this topic RSV Immunizations Under 20 Months Aged Out No longer eligible based on patient's age to complete this topic Insurance [employer] [place] AETNA Care Teams Rawhide Bone Roller Relationship Specialty Start Date End Date Garrett Foreman MD [address] [place] [address] PCP - General FAMILY PRACTICE 05/08/20
--- OUTSIDE RECORDS SUMMARY | 2024-08-22 15:19 | XMS_ITS | Clinical Summary ---
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 Gender Identity Not on file Sexual Orientation Not on file Plan of Treatment Health Maintenance Due Date Last Done Comments Hepatitis C Virus (HCV) Screening 1999 TdaP Immunization 1999 Hepatitis B Immunization (2 of 3 - 3-dose series) 01/23/2001 12/26/2000 Human Papillomavirus (HPV) Immunization (1 - Male 3-dose series) 2014 Influenza Immunization (#1) 2024 SARS-COV-2 Immunization ( - season) 2024 Respiratory Syncytial Virus (RSV) Immunization (Adult) (1 - 1-dose 75+ series) 2074 DTaP/Tdap/Td Immunization Discontinued 11/22/2000 Pneumococcal Immunization Combined Aged Out 2000 No longer eligible based on patient's age to complete this topic Meningococcal Immunization (ACWY) Aged Out No longer eligible based on patient's age to complete this topic Rotavirus Immunization Aged Out No lo nger eligible based on patient's age to complete this topic
--- OUTSIDE RECORDS SUMMARY | 2024-08-22 15:19 | XMS_ITS | Clinical Summary ---
Author Organization [facility] Address [address] [place] [address] Care Team Providers Care Slot Shift Manager Name Role Phone Garrett Foreman MD Primary Care Provider [phone] Source Comments [facility],non-owned Affiliates and Associated Physician Practices is amultiple site organization consisting of ambulatory clinics and hospital sitesin [place], [place], [place] and [place]. This disclosure is being madepursuant to the Care Everywhere program and may not contain all information available regarding this patient. Last updated 18.[facility] [employer] Allergies No known active allergies Medications * [...] 11/10/2014 10:15 AM CDT Plan of Treatment Health Maintenance Due Date Last Done Comments HIV SCREENING 2014 HPV VACCINE (1 - Male 3-dose series) 2014 HEPATITIS C SCREENING 03/25/2017 DTAP/TDAP/TD VACCINES (1 - Tdap) 2018 HEPATITIS B VACCINE (1 of 3 - 19+ 3-dose series) 2018 COVID-19 VACCINE (1 - 2023-2 5 season) 2024 INFLUENZA VACCINE (#1) 2024 DEPRESSION SCREENING 07/16/2024 ZOSTER VACCINE (1 of 2) 2049 HIB VACCINE Aged Out No longer eligi ble based on patient's age to complete this topic MENINGOCOCCAL (Group B) VACCINE Aged Out No longer eligible based on patient's age to complete this topic MENINGOCOCCAL VACCINE Aged Out No kiko tisha eligible based on patient's age to complete this topic PNEUMOCOCCAL VACCINE Aged Out No long er eligible based on patient's age to complete this topic Care Teams Slot Shift Manager Relationship Specialty Start Date End Date Garrett Foreman MD [address] [place] [address] PCP - General Family Medicine 11/02/14
--- OUTSIDE RECORDS SUMMARY | 2024-08-22 15:19 | XMS_ITS | Referral Summary ---
Author Organization [facility] Address [address] [place] [address] Care Team Providers Care Mechanic Sound Technician Name Role Phone Garrett Foreman MD Primary Care Provider Allergies No known active allergies Medications albuterol HFA (Ventolin HFA) 90 mcg/actuation inhaler Inhale 2 puffs every 6 (six) hours as needed Active fluticasone propion-salmeter oL (Advair Diskus) 100-50 mcg/dose diskus inhaler 10/17/2014 Active Dulera 100-5 mcg/actuation inhaler INHALE 2 PUFFS BY MOUTH EVERY 12 HOURS 08/10/2021 Active Active Problems No known active problems Social History Tobacco Use Types Packs/Day Years Used Date Smoking Tobacco: Former Smokeless Tobacco: Never AUDIT-C Answer Date Recorded Q1: How often do you have a drink containing alc ohol? Monthly or less 10/04/2021 Q2: How many drinks containi ng alcohol do you have on a typical day when you are drinking? 3 or 4 10/04/2021 Q3: How often do you have si x or more drinks on one occasion? 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 Gender Identity Not on file Sexual Orientation Not on file Last Filed Vital Signs Vital Sign Reading Time Taken Comments Blood Pressure 104/60 10/04/2021 10:07 AM CDT Pulse 74 10/04/2021 10:07 AM CDT Temperature 36.6 C (97.8 F) 10/04/2021 8:10 AM CDT Respiratory Rate 17 10/04/2021 10:07 AM CDT Oxygen Saturation 99% 10/04/2021 10:07 AM CDT Inhaled Oxygen Concentration - - Weight 68 kg (150 lb) 10/04/2021 8:10 AM CDT Height 177.8 cm (5' 10 ) 10/04/2021 8:10 AM CDT Body Mass Index 21.52 10/04/2021 8:10 AM CDT Plan of Treatment Not on file Insurance * Guarantor: Raad Somers Account Type Relation to Patient Date of Phone Billing Address Personal/Family Self 2000 [address] [place] [address] [facility] H[facility] Advance Directives For more information, please contact: [phone] * Full Code (Latest Code Status on File) Date Activated Date Inactivated Comments 10/04/2021 7:56 AM 10/04/2021 2:52 PM Care Teams Mechanic Sound Technician Relationship Specialty Start Date End Date Garrett Foreman MD [address] [facility] [address] [place] [address] PCP - General Family Medicine 09/20/21
--- OUTSIDE RECORDS SUMMARY | 2024-08-22 15:19 | XMS_ITS | Clinical Summary ---
Author Organization [facility] Address [address] [place] [address] Phone Care Team Providers Care Powdered Sugar Pulverizer Operator Name Role Phone Garrett Foreman MD Primary Care Provider [phone] Allergies No known active allergies Medications ondansetron (ZOFRAN ODT) 4 mg Tablet, Rapid Dissolve Take 1 Tablet (4 mg) by mouth every 8 hours as needed for Nausea/Emesis . Dissolve tablet on top of tongue, then swallow with saliva. 15 Tablet 08/30/2021 Active hyoscyamine 0.125 mg tablet Take 1 Tablet (0.125 mg) by mouth every 6 hours as needed for Spasm. 12 Tablet 08/30/2021 Active Social History Tobacco Use Types Packs/Day Years Used Date Smoking Tobacco: Every Day Smokeless Tobacco: Current Alcohol Use Standard Drinks/Week Comments Never 0 (1 standard drink = 0.6 oz pur e alcohol) Sex and Gender Information Value Date Recorded Sex Assigned at Not on file Legal Sex Male 1:00 PM GREASE PACKER Gender Identity Not on file Sexual Orientation Not on file Last Filed Vital Signs Vital Sign Reading Time Taken Comments Blood Pressure 117/59 08/30/2021 5:36 AM GREASE PACKER Pulse 69 08/30/2021 5:36 AM GREASE PACKER Temperature 36.7 C (98.1 F) 08/30/2021 1:42 AM GREASE PACKER Respiratory Rate 18 08/30/2021 5:36 AM GREASE PACKER Oxygen Saturation 100% 08/30/2021 5:36 AM GREASE PACKER Inhaled Oxygen Concentration - - Weight - - Height - - Body Mass Index - - Plan of Treatment Health Maintenance Due Date Last Done Comments PNEUMOCOCCAL VACCINE 0-64 YEARS (1 of 2 - PCV) 005 HPV VACCINES (1 - Male 3-dose series) 2014 DTAP/TDAP/TD VACCINES (1 - Tdap) 2018 HEPATITIS B VACCINES (1 of 3 - 19+ 3-dose series) 03/16 INFLUENZA VACCINE (#1) 2024 Insurance AETNA CHOICE POS II Care Teams Powdered Sugar Pulverizer Operator Relationship Specialty Start Date End Date Garrett Foreman MD [address] [facility] [address] [place] [address] PCP - General Family Practice 08/30/21
--- OUTSIDE RECORDS SUMMARY | 2024-08-22 15:19 | XMS_ITS | Clinical Summary ---
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 Gender Identity Not on file Sexual Orientation Not on file Obstetrics History Last Filed Vital Signs Vital Sign Reading [...] 10/04/2021 8:10 AM CDT Plan of Treatment Health Maintenance Due Date Last Done Comments Depression Screening 1999 Hepatitis C Screening 1999 Varicella Vaccines (2 of 2 - 2-dose childhood series) 2003 11/22/2000 DTaP/Tdap/Td Vaccine (2 - Tdap) 2010 1 HPV Vaccines (1 - Male 3-dos e series) 2014 Regular Well Visit/Exam 18-64 2017 Influenza Vaccine (#1) 2024 Pneumococcal vaccine <65 Aged Out 12/26/2000 No longer eligible based on patient's age to complete this topic Insurance Advance Directives For more information, please contact: [phone] * Full Code (Latest Code Status on File) Date Activated Date Inactivated Comments 10/04/2021 7:56 AM 10/04/2021 2:52 PM Care Teams Weld Technician Relationship Specialty Start Date End Date Garrett Foreman MD [address] [facility] [address] [place] [address] PCP - General Family Medicine 09/20/21
--- OUTSIDE RECORDS SUMMARY | 2024-08-22 15:19 | XMS_ITS | Patient Health Summary ---
Author Organization [facility] Address [address] [place] [address] Care Team Providers Care Nutrition Tech Name Role Phone Garrett Foreman MD Primary Care Provider [phone] Note from [facility],non-owned Affiliates and Associated Physician Practices is amultiple site organization consisting of ambulatory clinics and hospital sitesin [place], [place], [place] and [place]. This disclosure is being madepursuant to the Care Everywhere program and may not contain all information available regarding this patient. Last updated 18.[facility] [employer] Allergies No known active allergies Medications * Be aware that medications may not be up to date on this document. Alwaysverify current medications with the patient. * albuterol HFA (VENTOLIN HFA) 8 gram inhaler Inhale 2 Puffs by mouth every 6 hours as needed. * ADVAIR DISKUS 100-50 MCG/DOSE inhaler(Started 10/17/2014) 1 refill left Active Problems No known active problems Social [...] Mass Index 20.94 11/10/2014 10:15 AM CDT Care Teams Nutrition Tech Relationship Specialty Start Date End Date Garrett Foreman MD [address] [place] [address] PCP - General Family Medicine 11/02/14
== END 2024-08-22 15:17 | disposition home or self-care (01) ==
LOC: ANHIMG 15:18
PROVIDERS: PCP Family Medicine; Visit Provider Physician Assistant
DX: M25.511 Pain in right shoulder (principal); M47.892 Other spondylosis, cervical region
CPT/HCPCS: 72040; 73030

== ENCOUNTER 2025-01-16 14:26 | Emergency (ER) | payer OTHER, SELFPAY ==
[2025-01-16 14:28] VITALS: BP 129/79; PULSE 74; RESP 16; TEMP 36.6; O2SAT 98
--- OUTSIDE RECORDS SUMMARY | 2025-01-16 14:28 | XMS_ITS | Clinical Summary ---
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
--- OUTSIDE RECORDS SUMMARY | 2025-01-16 14:28 | XMS_ITS | Clinical Summary ---
Author Organization [facility] Address [address] [place] [address] Care Team Providers Care Lease Picker Name Role Phone Garrett Foreman MD Primary Care Provider [phone] Allergies No known active allergies Social History [...] 2:35 AM CDT Height 180.3 cm (5' 11) 10/30/2022 2:35 AM CDT Body Mass Index 19.8 10/30/2022 2:35 AM CDT Plan of Treatment Health Maintenance Due Date Last Done Comments Annual Physical 2002 HPV Vaccines (1 - Male 3-dos e series) 2014 Hepatitis C 2017 DTaP, Tdap and Td Vaccines ( 2 - Tdap) 2018 11/22/2000 Hepatitis B Vaccines (1 of 3 - 19+ 3-dose series) 2018 Pneumococcal Vaccine: Pediat rics (0 to 5 Years) and At-Risk Patients (6 to 49 Years) (1 of 2 - PCV) 2018 COVID-19 Vaccine ( - 2023-2 5 season) 2024 Meningococcal B Vaccine Aged Out No l onger eligible based on patient's age to complete this topic Meningococcal Vaccine Aged Out No kiko tisha eligible based on patient's age to complete this topic RSV Immunizations Under 20 Months Aged Out No longer eligible based on patient's age to complete this topic Insurance [employer] [place] AETNA Care Teams Lease Picker Relationship Specialty Start Date End Date Garrett Foreman MD [address] [facility] [address] [place] [address] PCP - General FAMILY PRACTICE 05/08/20
--- OUTSIDE RECORDS SUMMARY | 2025-01-16 14:28 | XMS_ITS | Clinical Summary ---
Author Organization [facility] Address [address] [place] [address] Phone Care Team Providers Care Customer Service Representative Name Role Phone Garrett Foreman MD Primary Care Provider [phone] Allergies No known active allergies Medications ondansetron [...] on file Legal Sex Male 1:00 PM MONOTYPE SETTER Gender Identity Not on file Sexual Orientation Not on file Last Filed Vital Signs Vital Sign Reading Time Taken Comments Blood Pressure 117/59 08/30/2021 5:36 AM MONOTYPE SETTER Pulse 69 08/30/2021 5:36 AM MONOTYPE SETTER Temperature 36.7 C (98.1 F) 08/30/2021 1:42 AM MONOTYPE SETTER Respiratory Rate 18 08/30/2021 5:36 AM MONOTYPE SETTER Oxygen Saturation 100% 08/30/2021 5:36 AM MONOTYPE SETTER Inhaled Oxygen Concentration - - Weight - - Height - - Body Mass Index - - Plan of Treatment Health Maintenance Due Date Last Done Comments HPV VACCINES (1 - Male 3-dose series) 2014 DTAP/TDAP/TD VACCINES (1 - Tdap) 2018 HEPATITIS B VACCINES (1 of 3 - 19+ 3-dose series) 03/16 INFLUENZA VACCINE (#1) 2025 Insurance AETNA CHOICE POS II Care Teams Customer Service Representative Relationship Specialty Start Date End Date Garrett Foreman MD [address] [facility] [address] [place] [address] PCP - General Family Practice 08/30/21
--- OUTSIDE RECORDS SUMMARY | 2025-01-16 14:28 | XMS_ITS | Clinical Summary ---
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 Gender Identity Not on file Sexual Orientation [...] 8:10 AM CDT Height 177.8 cm (5' 10) 10/04/2021 8:10 AM CDT Body Mass Index 21.52 10/04/2021 8:10 AM CDT Plan of Treatment Not on file Insurance [facility] HMO Advance Directives For more information, please contact: [phone] * Full Code (Latest Code Status on File) Date Activated Date Inactivated Comments 10/04/2021 7:56 AM 10/04/2021 2:52 PM Care Teams Production Manufacturing Worker Relationship Specialty Start Date End Date Garrett Foreman MD [address] [facility] [address] [place] [address] PCP - General Family Medicine 09/20/21
--- OUTSIDE RECORDS SUMMARY | 2025-01-16 14:28 | XMS_ITS | Referral Summary ---
Author Organization [facility] Address [address] [place] [address] Care Team Providers Care Machine Stemmer Name Role Phone Garrett Foreman MD Primary [...] on file Legal Sex Male 4:32 AM CRATE ICER Gender Identity Not on file Sexual Orientation [...] Plan of Treatment Not on file Insurance [facility] HMO Advance Directives For more information, please contact: [phone] * Full Code (Latest Code Status on File) Date Activated Date Inactivated Comments 10/04/2021 7:56 AM 10/04/2021 2:52 PM Care Teams Machine Stemmer Relationship Specialty Start Date End Date Garrett Foreman MD [address] [facility] [address] [place] [address] PCP - General Family Medicine 09/20/21
--- OUTSIDE RECORDS SUMMARY | 2025-01-16 14:28 | XMS_ITS | Clinical Summary ---
Author Organization [facility] Address [address] [facility] [place] [address] Care Team Providers Care Unit Controller Name Role Phone Garrett Foreman MD Primary Care Provider [phone] Source Comments [facility],non-owned Affiliates and Associated Physician Practices is amultiple site organization consisting of ambulatory clinics and hospital sitesin [place], [place], [place] and [place]. This disclosure is being madepursuant to the Care Everywhere program and may not contain all information available regarding this patient. Last updated 18.[facility] Allergies No known active allergies Medications * Be aware that medications may not be up to date on this document. Alwaysverify current medications with the patient. 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 Gender Identity Not on file Sexual Orientation [...] A M CDT Height 174 cm (5' 8.5) 11/10/2014 10:15 AM CDT Body Mass Index 20.94 11/10/2014 10:15 AM CDT Plan of Treatment Health Maintenance Due Date Last Done Comments HIV SCREENING 2014 HPV VACCINE (1 - Male 3-dose series) 2014 HEPATITIS C SCREENING 03/25/2017 DTAP/TDAP/TD VACCINES (1 - Tdap) 2018 HEPATITIS B VACCINE (1 of 3 - 19+ 3-dose series) 2018 COVID-19 VACCINE (1 - 2023-2 5 season) 2024 DEPRESSION SCREENING 07/16/2024 INFLUENZA VACCINE (Season Ended) 2025 ZOSTER VACCINE (1 of 2) 2049 HIB VACCINE Aged Out No longer eligi ble based on patient's age to complete this topic MENINGOCOCCAL (Group B) VACC INE SHARED DECISION-MAKING Aged Out No longer eligibl e based on patient's age to complete this topic MENINGOCOCCAL GROUPS A/C/Y/W VACCINE Aged Out No longer eligible b ased on patient's age to complete this topic PNEUMOCOCCAL VACCINE Aged Out No long er eligible based on patient's age to complete this topic Insurance [facility] Care Teams Unit Controller Relationship Specialty Start Date End Date Garrett Foreman MD [address] [place] [address] PCP - General Family Medicine 11/02/14
[2025-01-16 14:59] LABS: Hematocrit 48.6 % (42.0-52.0); Hemoglobin 16.9 g/dL (14.0-18.0); Immature Granulocyte Percent A 1.0 % (0-0.5); Lymphocytes Absolute Auto 1.68 K/mm3 (0.9-3.2); Mean Corpuscular HGB Conc 34.8 g/dl (32-36); Mean Corpuscular Hemoglobin 31.6 pg (26-34); Mean Corpuscular Volume 90.8 fl (80-100); Nucleated Red Blood Cells Absolute Auto 0.000 K/mm3 (0.0-0.012); Nucleated Red Blood Cells Perc 0.0 % (0.0-0.2); Platelet Count Result 204 k/mm3 (150-375); Red Blood Count 5.35 M/mm3 (4.6-6.20); White Blood Count 7.3 K/mm3 (4.5-10.0)
[2025-01-16 15:00] VITALS: BP 126/77; PULSE 76; RESP 16; O2SAT 100
[2025-01-16 15:00] LABS: Add Urine Microscopic? NO; Appearance Urine Clear (Clear); Glucose Urine UA Negative (Negative); Leukocyte Esterase Ur Negative LEU/UL (Negative); Nitrate Urine Negative (Negative); Specific Grav Ur 1.010 (1.001-1.035)
[2025-01-16 15:02] VITALS: BP 126/77; PULSE 76; RESP 16; TEMP 36.6; O2SAT 99
--- OUTSIDE RECORDS SUMMARY | 2025-01-16 15:15 | XMS_ITS | Clinical Summary ---
Author Organization [facility] Address [address] [facility] [place] [address] Care Team Providers Care Meat Carrier Name Role Phone Garrett Foreman MD Primary Care Provider [phone] Source Comments [facility],non-owned Affiliates and Associated Physician Practices is amultiple site organization consisting of ambulatory clinics and hospital sitesin [place], [place], [place] and [place]. This disclosure is being madepursuant to the Care Everywhere program and may not contain all information available regarding this patient. 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
--- OUTSIDE RECORDS SUMMARY | 2025-01-16 15:15 | XMS_ITS | Referral Summary ---
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 HMO Advance Directives For more information, please contact: [phone] * Full Code (Latest Code Status on File) Date Activated Date Inactivated Comments 10/04/2021 7:56 AM 10/04/2021 2:52 PM Care Teams Car Rider Relationship Specialty Start Date End Date Garrett Foreman MD [address] [facility] [address] [place] [address] PCP - General Family Medicine 09/20/21
--- OUTSIDE RECORDS SUMMARY | 2025-01-16 15:15 | XMS_ITS | Clinical Summary ---
Author Organization [facility] Address [address] [place] [address] Care Team Providers Care Negative Cutter Name Role Phone Garrett Foreman MD Primary Care Provider [phone] Allergies No known active allergies Social History [...] [facility] [place] [employer] Care Teams Negative Cutter Relationship Specialty Start Date End Date Garrett Foreman MD [address] [facility] [address] [place] [address] PCP - General FAMILY PRACTICE 05/08/20
--- OUTSIDE RECORDS SUMMARY | 2025-01-16 15:15 | XMS_ITS | Clinical Summary ---
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
--- OUTSIDE RECORDS SUMMARY | 2025-01-16 15:15 | XMS_ITS | Clinical Summary ---
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 Gender Identity Not on file Sexual Orientation Not on file Last Filed Vital Signs Vital Sign Reading Time Taken Comments Blood Pressure 117/59 08/30/2021 5:36 AM CHIEF DESIGN DRAFTER Pulse 69 08/30/2021 5:36 AM CHIEF DESIGN DRAFTER Temperature 36.7 C (98.1 F) 08/30/2021 1:42 AM CHIEF DESIGN DRAFTER Respiratory Rate 18 08/30/2021 5:36 AM CHIEF DESIGN DRAFTER Oxygen Saturation 100% 08/30/2021 5:36 AM CHIEF DESIGN DRAFTER Inhaled Oxygen Concentration - - Weight - - Height - - Body Mass Index - - Plan of Treatment Health Maintenance Due Date Last Done Comments HPV VACCINES (1 - Male 3-dose series) 2014 DTAP/TDAP/TD VACCINES (1 - Tdap) 2018 HEPATITIS B VACCINES (1 of 3 - 19+ 3-dose series) 03/16 INFLUENZA VACCINE (#1) 2025 Insurance [employer] CHOICE POS II Care Teams Medical Affairs Leader Relationship Specialty Start Date End Date Garrett Foreman MD [address] [facility] [address] [place] [address] PCP - General Family Practice 08/30/21
--- OUTSIDE RECORDS SUMMARY | 2025-01-16 15:15 | XMS_ITS | Clinical Summary ---
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
[2025-01-16] MEDS: SODIUM CHLORIDE 0.9% IV 1,000 ML 999 ML IV CONT (15:16)
[2025-01-16] MEDS: ONDANSETRON INJ 4 MG/2 ML VIAL IV PUSH (15:16)
[2025-01-16 15:18] LABS: Alanine Aminotransferase 17 U/L (6-50); Albumin Level 4.5 g/dL (3.5-5.1); Alkaline Phosphatase 49 U/L (38-126); Anion Gap 11 mmol/L (4-12); Aspartate Amino Transferase 27 U/L (17-59); Bilirubin,Total 1.5 mg/dL (0.2-1.3); Blood Urea Nitrogen 10 mg/dL (9-20); Calcium 9.2 mg/dL (8.4-10.2); Carbon Dioxide 22 mmol/L (22-30); Chloride 105 mmol/L (98-107); Estimated CRCL calculation 127 ml/min; Estimated Glomerular Filt Rate > 60; Glucose 84 mg/dL (65-110); Lipase 25 U/L (23-300); Potassium 4.0 mmol/L (3.4-5.0); Sodium 138 mmol/L (137-145); Total Protein 7.8 g/dL (6.3-8.2)
[2025-01-16 15:31] VITALS: BP 131/75; PULSE 78; RESP 20; O2SAT 99
[2025-01-16 16:02] VITALS: BP 136/72; PULSE 73; RESP 13; TEMP 36.6; O2SAT 100
--- NOTE | 2025-01-16 16:13 | ED.GENADULT ---
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 The patient denies chest pain denies shortness of breath reports no syncope reports no diarrhea the patient denies abdominal pain but does report that he feels nausea Related Data Allergies Allergy/AdvReac Type Severity Reaction Status Date / Time No Known Allergies Allergy Verified 01/16/25 14:27 Review of Systems Review of Systems: A 10 system review of systems was completed on the patient and is negative except for what is stated in the HPI. Nursing and ancillary documentation was reviewed. 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 Right arm cellulitis Contusion, chest wall Laceration of right forearm Mild persistent asthma without complication Surgical History Surgical History S/P orchiopexy right; aged 3 months Social History Social History Social History: Smoking packs per day: 2 Smoking cigarettes per day: 40.0 Years smoked: 3 Smoking pack-years: 6.00 Smoking status: Former smoker Tobacco type: cigarettes Second hand tobacco smoke exposure: No Alcohol intake: current Drinks per week: 2 Substance use: never Substance use type: does not use Do You Feel Safe in your Home?: Yes Lack of Transportation: No Lack of Food: Never True Current Housing: I Have Housing Concerned About Future Housing: No Difficulty Paying Gas/Electric Bills: No Difficulty Paying for Meds: No Currently Unemployed: No Education: Don't Know Difficulty w/ Childcare or Family Care: No Living arrangements: alone Occupation/Education: occupation Gender identity (if verbalized by the patient): Male Sexual Orientation (if Verbalized by the Patient): Straight or Heterosexual Exam Narrative: GENERAL: Well-appearing, well-nourished, and in no acute distress. HEAD: Normocephalic, atraumatic. EYES: PERRLA and EOMI. ENT: Nares clear, no rhinorrhea or epistaxis. Mucous membranes moist. NECK: Supple. CHEST: Clear to auscultation. No respiratory distress. HEART: Regular rate and rhythm. No murmur heard. Normal peripheral pulses. ABDOMEN: Soft, nontender, nondistended, normal active bowel sounds. EXTREMITIES: Normal range of motion. No edema. SKIN: Warm, dry, no rash. NEURO: No focal deficits. Alert and oriented x3. PSYCH: Normal mood and affect. Course Vital Signs Vital signs: Vital Signs Temperature 36.6 C 01/16/25 14:28 Pulse Rate 74 01/16/25 14:28 Respiratory Rate 16 01/16/25 14:28 Blood Pressure 129/79 01/16/25 14:28 Pulse Oximetry 98 01/16/25 14:28 Oxygen Delivery Room Air 01/16/25 14:28 Temperature 36.6 C 01/16/25 16:02 Pulse Rate 73 01/16/25 16:02 Respiratory Rate 13 01/16/25 16:02 Blood Pressure 136/72 01/16/25 16:02 Pulse Oximetry 100 01/16/25 16:02 Oxygen Delivery Room Air 01/16/25 15:00 Medical Decision Making [facility] Narrative Medical decision making narrative: Differential diagnosis includes dehydration, electrolyte abnormality, viral illness CBCs within normal limits CMP is within normal limits urinalysis showed trace ketones Patient received IV fluids received a dose of IV Zofran Vital Signs Vital Signs: Vital Signs Temperature 36.6 C 01/16/25 14:28 Pulse Rate 74 01/16/25 14:28 Respiratory Rate 16 01/16/25 14:28 Blood Pressure 129/79 01/16/25 14:28 Pulse Oximetry 98 01/16/25 14:28 Oxygen Delivery Room Air 01/16/25 14:28 Temperature 36.6 C 01/16/25 16:02 Pulse Rate 73 01/16/25 16:02 Respiratory Rate 13 01/16/25 16:02 Blood Pressure 136/72 01/16/25 16:02 Pulse Oximetry 100 01/16/25 16:02 Oxygen Delivery Room Air 01/16/25 15:00 Lab Data 01/16/25 14:51 01/16/25 14:51 Labs: Lab Results 01/16/25 Range/Units 14:51 WBC 7.3 (4.5-10.0) K/mm3 RBC 5.35 (4.6-6.20) M/mm3 Hgb 16.9 (14.0-18.0) g/dL Hct 48.6 (42.0-52.0) % MCV 90.8 (80-100) fl MCH 31.6 (26-34) pg MCHC 34.8 (32-36) g/dl RDW 12.3 (11.5-14.5) % Plt Count 204 (150-375) k/mm3 MPV 10.3 (7.4-10.4) fl Immature Gran % (Auto) 1.0 H (0-0.5) % Neut % (Auto) 65.9 (45.5-73.1) % Lymph % (Auto) 23.1 (18.3-44.2) % [place] % (Auto) 7.7 (2.6-8.5) % Eos % (Auto) 1.9 (0-4.4) % Baso % (Auto) 0.4 (0.2-1.2) % Lymph # (Auto) 1.68 (0.9-3.2) K/mm3 [place] # (Auto) 0.6 (0.1-0.6) K/mm3 Eos # (Auto) 0.1 (0-0.3) K/mm3 Baso # (Auto) 0.0 (0.0-0.1) K/mm3 Abs Immat Gran (auto) 0.07 H (0.00-0.031) K/mm3 Absolute Neuts (auto) 4.8 (1.3-6.7) K/mm3 Absolute Nucleated RBC 0.000 (0.0-0.012) K/mm3 Nucleated RBC % 0.0 (0.0-0.2) % Sodium 138 (137-145) mmol/L Potassium 4.0 (3.4-5.0) mmol/L Chloride 105 (98-107) mmol/L Carbon Dioxide 22 (22-30) mmol/L Anion Gap 11 (4-12) mmol/L BUN 10 (9-20) mg/dL Creatinine 0.73 (0.7-1.3) mg/dL Estim Creat Clear Calc 127 ml/min Estimated GFR > 60 (59 - ) Glucose 84 (65-110) mg/dL Calcium 9.2 (8.4-10.2) mg/dL Total Bilirubin 1.5 H (0.2-1.3) mg/dL AST 27 (17-59) U/L ALT 17 (6-50) U/L Alkaline Phosphatase 49 (38-126) U/L Total Protein 7.8 (6.3-8.2) g/dL Albumin 4.5 (3.5-5.1) g/dL Lipase 25 (23-300) U/L Urine Color Yellow (Yellow) Urine Appearance Clear (Clear) Urine pH 7.5 (5.0-9.0) Ur Specific [place] 1.010 (1.001-1.035) Urine Protein Negative (Negative) mg/dL Urine Glucose (UA) Negative (Negative) mg/dL Urine Ketones Trace H (Negative) mg/dL Ur Blood (Man) Negative (Negative) Urine Nitrate Negative (Negative) Urine Bilirubin Negative (Negative) Urine Urobilinogen 0.2 (<2.0) mg/dL Leukocyte Esterase Rfl Negative (Negative) HANNAH/UL Discharge Plan Discharge Clinical Impression: Nausea & vomiting Patient Disposition: Home Condition: Stable Instructions: Antibiotic Form, Acute Nausea and Vomiting (ED) Patient Language: Frisian Prescriptions: New ondansetron HCl 4 mg tablet 4 mg PO Q8H PRN (Reason: nausea and vomiting) 4 Days Qty: 10 0RF No Action albuterol sulfate 90 mcg/actuation HFA aerosol inhaler 1 inh inhalation Q4H PRN (Reason: shortness of breath or wheezing) Qty: 8.5 3RF fluticasone furoate-vilanterol [Breo Ellipta] 100-25 mcg/dose blister with device See Rx Instructions .ROUTE .COMPLEX Qty: 60 3RF Dose Instruction: INHALE 1 PUFF BY MOUTH DAILY Rx Instructions: INHALE 1 PUFF BY MOUTH DAILY Follow-up/Referrals: Garrett Foreman MD [Primary Care Provider] - Time of Disposition: 16:35
[2025-01-16 17:03] VITALS: BP 148/69; PULSE 72; RESP 12; TEMP 36.6; O2SAT 99
== END 2025-01-16 17:28 | disposition home or self-care (01) ==
PROVIDERS: Emergency Medicine; Emergency Provider Emergency Medicine; PCP Family Medicine
DX: R11.2 Nausea with vomiting, unspecified (principal); Z87.891 Personal history of nicotine dependence
CPT/HCPCS: 36415; 80053; 81003; 83690; 85025; 96361; 96374; 99284; J2405; J7030

== ENCOUNTER 2025-01-19 08:39 | Emergency (ER) | payer OTHER, SELFPAY ==
--- NOTE | ~2025-01-19 | CT_ITS ---
CLINICAL INDICATION: Right lower quadrant pain COMPARISON: 02/20/2023. TECHNIQUE: Multiple contiguous axial images of the abdomen and pelvis were performed following the ad ministration of with 100 mL Omnipaque-350 intravenous contrast The dose-length product (DLP) was 213.73 mGy-cm. Automated exposure control and iterative reconstruction technique were employed. FINDINGS/OBSERVATIONS: Visualized lower thorax: The bilateral lung bases are clear. The heart is of normal size, without pericardial effusion. Small hiatal hernia is present. Liver: The liver demonstrates homogeneous enhancement and is not enlarged. Gallbladder and biliary system: The gallbladder is only minimally distended, and otherwise unremarkable. Pancreas: The pancreas enhances homogeneously without ductal dilatation. Spleen: The spleen enhances homogeneously and is not enlarged. Kidneys: The bilateral kidneys enhance symmetrically without hydronephrosis or renal calculi. Adrenal glands: Unremarkable. Gastrointestinal tract: Fecal stasis within the colon. Appendix: The appendix is of normal caliber (axial series, images 110 through 119). Vasculature: Unremarkable. Lymph nodes: No pathologically enlarged or morphologically suspicious lymph nodes within the retroperitoneum or at the root of the mesentery. Pelvic structures: The bladder is decompressed, limiting its evaluation. The prostate gland is not enlarged. Body wall and musculoskeletal: No significant degenerative disease within the lower thoracic or lumbosacral spine. IMPRESSION: No acute intra-abdominal pathology, as detailed above. Reviewed, dictated and finalized at location A.
[2025-01-19 08:42] VITALS: BP 115/81; PULSE 81; RESP 18; TEMP 36.4; O2SAT 98
--- OUTSIDE RECORDS SUMMARY | 2025-01-19 08:51 | XMS_ITS | Clinical Summary ---
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 Gender Identity Not on file Sexual Orientation Not on file Last Filed Vital Signs Vital Sign Reading Time Taken Comments Blood Pressure 117/59 08/30/2021 5:36 AM WELL LOGGING CAPTAIN Pulse 69 08/30/2021 5:36 AM WELL LOGGING CAPTAIN Temperature 36.7 C (98.1 F) 08/30/2021 1:42 AM WELL LOGGING CAPTAIN Respiratory Rate 18 08/30/2021 5:36 AM WELL LOGGING CAPTAIN Oxygen Saturation 100% 08/30/2021 5:36 AM WELL LOGGING CAPTAIN Inhaled Oxygen Concentration - - Weight - - Height - - Body Mass Index - - Plan of Treatment Health Maintenance Due Date Last Done Comments HPV VACCINES (1 - Male 3-dose series) 2014 DTAP/TDAP/TD VACCINES (1 - Tdap) 2018 HEPATITIS B VACCINES (1 of 3 - 19+ 3-dose series) 03/16 INFLUENZA VACCINE (#1) 2025 Insurance [employer] CHOICE POS II Care Teams Call Center Analyst Relationship Specialty Start Date End Date Garrett Foreman MD [address] [facility] [address] [place] [address] PCP - General Family Practice 08/30/21
--- OUTSIDE RECORDS SUMMARY | 2025-01-19 08:51 | XMS_ITS | Clinical Summary ---
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
--- OUTSIDE RECORDS SUMMARY | 2025-01-19 08:51 | XMS_ITS | Clinical Summary ---
Author Organization [facility] Address [address] [place] [address] Care Team Providers Care Manager Advertising Name Role Phone Garrett Foreman MD Primary Care Provider [phone] Source Comments [facility],non-owned Affiliates and Associated Physician Practices is amultiple site organization consisting of ambulatory clinics and hospital sitesin [place], [place], [place] and [place]. This disclosure is being madepursuant to the Care Everywhere program and may not contain all information available regarding this patient. 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
--- OUTSIDE RECORDS SUMMARY | 2025-01-19 08:51 | XMS_ITS | Referral Summary ---
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
--- OUTSIDE RECORDS SUMMARY | 2025-01-19 08:51 | XMS_ITS | Clinical Summary ---
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
[2025-01-19 09:09] LABS: Add Urine Microscopic? NO; Appearance Urine Clear (Clear); Glucose Urine UA Negative (Negative); Leukocyte Esterase Ur Negative LEU/UL (Negative); Nitrate Urine Negative (Negative); Specific Grav Ur 1.019 (1.001-1.035)
--- NOTE | 2025-01-19 09:23 | ED.ABDPAIN ---
HPI - Abdominal Pain General Chief Complaint: Urogenital-Male Stated Complaint: possible kidney stone Time Seen by Provider: 01/19/25 09:08 Source: patient Mode of arrival: ambulatory Limitations: no limitations History of Present Illness HPI narrative: This is a 24-year-old male that presents to the emergency department for right lower quadrant abdominal pain. Reports the pain is sharp, intermittent in nature. Denies any other associated symptoms. Denies fevers, vomiting, dysuria, diarrhea, hematuria, testicular pain/swelling. 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 Right arm cellulitis Contusion, chest wall Laceration of right forearm Mild persistent asthma without complication Surgical History Surgical History S/P orchiopexy right; aged 3 months Social History Social History Social History: Smoking packs per day: 2 Smoking cigarettes per day: 40.0 Years smoked: 3 Smoking pack-years: 6.00 Smoking status: Former smoker Tobacco type: cigarettes Second hand tobacco smoke exposure: No Alcohol intake: current Drinks per week: 2 Substance use: never Substance use type: does not use Do You Feel Safe in your Home?: Yes Lack of Transportation: No Lack of Food: Never True Current Housing: I Have Housing Concerned About Future Housing: No Difficulty Paying Gas/Electric Bills: No Difficulty Paying for Meds: No Currently Unemployed: No Education: Don't Know Difficulty w/ Childcare or Family Care: No Living arrangements: alone Occupation/Education: occupation Gender identity (if verbalized by the patient): Male Sexual Orientation (if Verbalized by the Patient): Straight or Heterosexual Exam Narrative: GENERAL: Well-appearing, well-nourished, and in no acute distress. HEAD: Normocephalic, atraumatic. EYES: EOMI. CHEST: Clear to auscultation. No respiratory distress. No wheezes rales or rhonchi HEART: Regular rate and rhythm. No murmur heard. Normal peripheral pulses. ABDOMEN: Soft, nondistended, normal active bowel sounds. Tender to palpation in the right lower quadrant, without guarding EXTREMITIES: Normal range of motion. No edema. SKIN: Warm, dry, no rash. NEURO: No focal deficits. Alert and oriented x3. PSYCH: Normal mood and affect Course Course Emergency Course: Patient updated on his workup, resting comfortably Vital Signs Vital signs: Vital Signs Temperature 97.6 F 01/19/25 08:42 Pulse Rate 81 01/19/25 08:42 Respiratory Rate 18 01/19/25 08:42 Blood Pressure 115/81 01/19/25 08:42 Pulse Oximetry 98 01/19/25 08:42 Oxygen Delivery Room Air 01/19/25 08:42 Temperature 97.6 F 01/19/25 08:42 Pulse Rate 71 01/19/25 10:49 Respiratory Rate 16 01/19/25 10:49 Blood Pressure 110/71 01/19/25 10:49 Pulse Oximetry 98 01/19/25 10:49 Oxygen Delivery Room Air 01/19/25 08:42 MDM - Abdominal Pain MDM Narrative Medical decision making narrative: Patient presents the emergency department for right lower quadrant abdominal pain. He is afebrile and nontoxic appearing. His vitals are stable. Cbc without leukocytosis. Metabolic panel with normal appearing kidney function. Urine without evidence of infection. CT abdomen pelvis without acute findings. Patient updated on his workup, resting comfortably. Instructed to have follow-up with his primary provider for further evaluation. He was given warnings to return to the ER Differential Diagnosis Differential diagnosis: Likely acute appendicitis, calculus of kidney, constipation and diverticulitis Lab Data Attestation: I reviewed the patient's lab results. 01/19/25 09:13 01/19/25 09:13 Labs: Lab Results 01/19/25 01/19/25 Range/Units 09:03 09:13 WBC 5.8 (4.5-10.0) K/mm3 RBC 5.15 (4.6-6.20) M/mm3 Hgb 16.3 (14.0-18.0) g/dL Hct 47.6 (42.0-52.0) % MCV 92.4 (80-100) fl MCH 31.7 (26-34) pg MCHC 34.2 (32-36) g/dl RDW 12.1 (11.5-14.5) % Plt Count 189 (150-375) k/mm3 MPV 10.5 H (7.4-10.4) fl Immature Gran % (Auto) 0.5 (0-0.5) % Neut % (Auto) 67.7 (45.5-73.1) % Lymph % (Auto) 20.6 (18.3-44.2) % Stephen[place] % (Auto) 9.1 H (2.6-8.5) % Eos % (Auto) 1.4 (0-4.4) % Baso % (Auto) 0.7 (0.2-1.2) % Lymph # (Auto) 1.20 (0.9-3.2) K/mm3 Stephenson # (Auto) 0.5 (0.1-0.6) K/mm3 Eos # (Auto) 0.1 (0-0.3) K/mm3 Baso # (Auto) 0.0 (0.0-0.1) K/mm3 Abs Immat Gran (auto) 0.03 (0.00-0.031) K/mm3 Absolute Neuts (auto) 3.9 (1.3-6.7) K/mm3 Absolute Nucleated RBC 0.000 (0.0-0.012) K/mm3 Nucleated RBC % 0.0 (0.0-0.2) % Sodium 139 (137-145) mmol/L Potassium 4.2 (3.4-5.0) mmol/L Chloride 105 (98-107) mmol/L Carbon Dioxide 26 (22-30) mmol/L Anion Gap 8 (4-12) mmol/L BUN 11 (9-20) mg/dL Creatinine 0.80 (0.7-1.3) mg/dL Estim Creat Clear Calc 122 ml/min Estimated GFR > 60 (59 - ) Glucose 98 (65-110) mg/dL Calcium 9.6 (8.4-10.2) mg/dL Urine Color Yellow (Yellow) Urine Appearance Clear (Clear) Urine pH 8.5 (5.0-9.0) Ur Specific [place] 1.019 (1.001-1.035) Urine Protein Negative (Negative) mg/dL Urine Glucose (UA) Negative (Negative) mg/dL Urine Ketones Negative (Negative) mg/dL Ur Blood (Man) Negative (Negative) Urine Nitrate Negative (Negative) Urine Bilirubin Negative (Negative) Urine Urobilinogen 1.0 (<2.0) mg/dL Leukocyte Esterase Rfl Negative (Negative) HANNAH/UL Imaging Data Radiologist's impression: ITS Impressions Abdomen/Pelvis CT 01/19/25 10:30 IMPRESSION: No acute intra-abdominal pathology, as detailed above. Critical Care Time Critical Care Time Critical Care Time: No Discharge Plan Discharge Clinical Impression: Acute abdominal pain in right lower quadrant Patient Disposition: Home Condition: Stable Instructions: Abdominal Pain (ED) Additional Instructions: Return to the ER if you experience fever, abdominal pain with nausea and vomiting, you are unable to keep down liquids or solids, blood in the stool, pain or burning with urination, blood in the urine or any other symptoms that are concerning to you Tylenol or ibuprofen as needed for pain Follow up with your primary care doctor Patient Language: French Prescriptions: No Action ondansetron HCl 4 mg tablet 4 mg PO Q8H PRN (Reason: nausea and vomiting) 4 Days Qty: 10 0RF albuterol sulfate 90 mcg/actuation HFA aerosol inhaler 1 inh inhalation Q4H PRN (Reason: shortness of breath or wheezing) Qty: 8.5 3RF fluticasone furoate-vilanterol [Breo Ellipta] 100-25 mcg/dose blister with device See Rx Instructions .ROUTE .COMPLEX Qty: 60 3RF Dose Instruction: INHALE 1 PUFF BY MOUTH DAILY Rx Instructions: INHALE 1 PUFF BY MOUTH DAILY Follow-up/Referrals: Garrett Foreman MD [Primary Care Provider] -
[2025-01-19 09:24] LABS: Hematocrit 47.6 % (42.0-52.0); Hemoglobin 16.3 g/dL (14.0-18.0); Immature Granulocyte Percent A 0.5 % (0-0.5); Lymphocytes Absolute Auto 1.20 K/mm3 (0.9-3.2); Mean Corpuscular HGB Conc 34.2 g/dl (32-36); Mean Corpuscular Hemoglobin 31.7 pg (26-34); Mean Corpuscular Volume 92.4 fl (80-100); Nucleated Red Blood Cells Absolute Auto 0.000 K/mm3 (0.0-0.012); Nucleated Red Blood Cells Perc 0.0 % (0.0-0.2); Platelet Count Result 189 k/mm3 (150-375); Red Blood Count 5.15 M/mm3 (4.6-6.20); White Blood Count 5.8 K/mm3 (4.5-10.0)
[2025-01-19 09:27] LABS: Anion Gap 8 mmol/L (4-12); Blood Urea Nitrogen 11 mg/dL (9-20); Calcium 9.6 mg/dL (8.4-10.2); Carbon Dioxide 26 mmol/L (22-30); Chloride 105 mmol/L (98-107); Estimated CRCL calculation 122 ml/min; Estimated Glomerular Filt Rate > 60; Glucose 98 mg/dL (65-110); Potassium 4.2 mmol/L (3.4-5.0); Sodium 139 mmol/L (137-145)
--- OUTSIDE RECORDS SUMMARY | 2025-01-19 09:53 | XMS_ITS | Clinical Summary ---
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 Gender Identity Not on file Sexual Orientation Not on file Last Filed Vital Signs Vital Sign Reading Time Taken Comments Blood Pressure 117/59 08/30/2021 5:36 AM WOOD BARREL RECONDITIONER Pulse 69 08/30/2021 5:36 AM WOOD BARREL RECONDITIONER Temperature 36.7 C (98.1 F) 08/30/2021 1:42 AM WOOD BARREL RECONDITIONER Respiratory Rate 18 08/30/2021 5:36 AM WOOD BARREL RECONDITIONER Oxygen Saturation 100% 08/30/2021 5:36 AM WOOD BARREL RECONDITIONER Inhaled Oxygen Concentration - - Weight - - Height - - Body Mass Index - - Plan of Treatment Health Maintenance Due Date Last Done Comments HPV VACCINES (1 - Male 3-dose series) 2014 DTAP/TDAP/TD VACCINES (1 - Tdap) 2018 HEPATITIS B VACCINES (1 of 3 - 19+ 3-dose series) 03/16 INFLUENZA VACCINE (#1) 2025 Insurance [employer] CHOICE POS II Care Teams Senior Education Specialist Relationship Specialty Start Date End Date Garrett Foreman MD [address] [facility] [address] [place] [address] PCP - General Family Practice 08/30/21
--- OUTSIDE RECORDS SUMMARY | 2025-01-19 09:53 | XMS_ITS | Clinical Summary ---
Author Organization [facility] Address [address] [place] [address] Care Team Providers Care Deputy Juvenile Officer Name Role Phone Garrett Foreman MD Primary Care Provider [phone] Source Comments [facility],non-owned Affiliates and Associated Physician Practices is amultiple site organization consisting of ambulatory clinics and hospital sitesin [place], [place], [place] and [place]. This disclosure is being madepursuant to the Care Everywhere program and may not contain all information available regarding this patient. 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
--- OUTSIDE RECORDS SUMMARY | 2025-01-19 09:53 | XMS_ITS | Referral Summary ---
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 HMO Advance Directives For more information, please contact: [phone] * Full Code (Latest Code Status on File) Date Activated Date Inactivated Comments 10/04/2021 7:56 AM 10/04/2021 2:52 PM Care Teams Business Management Consultant Relationship Specialty Start Date End Date Garrett Foreman MD [address] [facility] [address] [place] [address] PCP - General Family Medicine 09/20/21
--- OUTSIDE RECORDS SUMMARY | 2025-01-19 09:53 | XMS_ITS | Clinical Summary ---
Author Organization [facility] Address [address] [place] [address] Care Team Providers Care Kiln Head House Operator Name Role Phone Garrett Foreman MD Primary Care Provider [phone] Allergies No known active allergies Social History [...] [employer] [place] [employer] Care Teams Kiln Head House Operator Relationship Specialty Start Date End Date Garrett Foreman MD [address] [facility] [address] [place] [address] PCP - General FAMILY PRACTICE 05/08/20
--- OUTSIDE RECORDS SUMMARY | 2025-01-19 09:53 | XMS_ITS | Clinical Summary ---
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
--- OUTSIDE RECORDS SUMMARY | 2025-01-19 09:53 | XMS_ITS | Clinical Summary ---
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
[2025-01-19 10:49] VITALS: BP 110/71; PULSE 71; RESP 16; O2SAT 98
[2025-01-19 11:48] VITALS: BP 113/76; PULSE 77; RESP 14; O2SAT 99
== END 2025-01-19 11:53 | disposition home or self-care (01) ==
PROVIDERS: Emergency Medicine; Emergency Provider Physician Assistant; PCP Family Medicine
DX: R10.31 Right lower quadrant pain (principal); Z87.891 Personal history of nicotine dependence
CPT/HCPCS: 36415; 74177; 80048; 81003; 85025; 99284; Q9967